=== PATIENT | male | born 1945 | race Caucasian/White ===

== ENCOUNTER 2021-08-28 12:54 | Outpatient (CLI) | payer MEDICARE, OTHER, SELFPAY ==
[2021-08-28 16:31] LABS: Prostate Specific Antigen < 0.1 ng/mL (< OR = 4.0)
== END 2021-08-28 12:55 | disposition home or self-care (01) ==
PROVIDERS: Radiology Radiation Oncology; Visit Provider Internal Medicine Hematology & Oncology
DX: C61 Malignant neoplasm of prostate (principal)
CPT/HCPCS: 36415; 84153

== ENCOUNTER 2022-02-28 09:16 | Outpatient (CLI) | payer MEDICARE, OTHER, SELFPAY ==
[2022-02-28 12:43] LABS: Prostate Specific Antigen < 0.1 ng/mL (< OR = 4.0)
== END 2022-02-28 09:17 | disposition home or self-care (01) ==
PROVIDERS: Radiology Radiation Oncology; Visit Provider Internal Medicine Hematology & Oncology
DX: C61 Malignant neoplasm of prostate (principal)
CPT/HCPCS: 36415; 84153

== ENCOUNTER 2023-03-20 15:54 | Outpatient (CLI) | payer MEDICARE, SELFPAY ==
--- NOTE | ~2023-03-20 | US_ITS ---
EXAMINATION:US venous doppler LE BI INDICATION:Lower extremity swelling TECHNIQUE: Multiple grayscale, color flow and Doppler images of the right and left lower extremity de ep venous systems were obtained and reviewed. COMPARISON:No prior studies for comparison. FINDINGS: The common femoral, superficial femoral and popliteal veins demonstrate normal respiratory variation, augmentation and compressibility. Color flow is also seen within the posterior tibial, pe roneal, greater saphenous and profunda veins. IMPRESSION: 1: No lower extremity deep venous thrombosis. Reviewed, dictated and finalized at location A.
[2023-03-20 18:08] LABS: Appearance Urine Clear (Clear); Basophils Percent Auto 0.6 % (0.2-1.2); Bilirubin Urine Negative (Negative); Blood Urine Negative (Negative); Color Urine Yellow (Yellow); Eosinophils Absolute Auto 0.2 K/mm3 (0-0.3); Eosinophils Percent Auto 3.6 % (0-4.4); Glucose Urine UA Negative (Negative); Hematocrit 40.1 % (42.0-52.0); Hemoglobin 13.2 g/dL (14.0-18.0); Immature Granulocyte Absolute 0.03 K/mm3 (0.00-0.031); Immature Granulocyte Percent A 0.6 % (0-0.5); Ketones Urine Negative (Negative); Leukocyte Esterase Ur Negative LEU/UL (Negative); Lymphocytes Percent Auto 21.7 % (18.3-44.2); Mean Corpuscular HGB Conc 32.9 g/dl (32-36); Mean Corpuscular Hemoglobin 31.1 pg (26-34); Mean Corpuscular Volume 94.6 fl (80-100); Mean Platelet Volume 12.7 fl (7.4-10.4); Monocytes Absolute Auto 0.5 K/mm3 (0.1-0.6); Monocytes Percent Auto 10.5 % (2.6-8.5); Neutrophils Absolute Auto 3.2 K/mm3 (1.3-6.7); Nitrate Urine Negative (Negative); Platelet Count Result 132 k/mm3 (150-375); Protein Urine Negative (Negative); Red Blood Count 4.24 M/mm3 (4.6-6.20); Red Cell Distribution Width 14.5 % (11.5-14.5); Specific Grav Ur 1.017 (1.001-1.035); Urobilinogen Urine 0.2 mg/dL (<2.0); White Blood Count 5.1 K/mm3 (4.5-10.0)
[2023-03-20 18:12] LABS: Add Urine Microscopic? NO
[2023-03-20 18:18] LABS: Alanine Aminotransferase 49 U/L (6-50); Albumin Level 4.3 g/dL (3.5-5.1); Alkaline Phosphatase 70 U/L (38-126); Anion Gap 8 mmol/L (8-16); Aspartate Amino Transferase 49 U/L (17-59); Bilirubin,Total 0.6 mg/dL (0.2-1.3); Blood Urea Nitrogen 16 mg/dL (9-20); Calcium 9.2 mg/dL (8.4-10.2); Carbon Dioxide 27 mmol/L (22-30); Chloride 105 mmol/L (98-107); Estimated Glomerular Filt Rate > 60; Glucose 115 mg/dL (65-110); Potassium 4.1 mmol/L (3.4-5.0); Sodium 140 mmol/L (137-145)
[2023-03-20 18:27] LABS: NT Pro B Type Natriuretic Pept 161 pg/mL (19.9-100)
== END 2023-03-20 15:55 | disposition home or self-care (01) ==
PROVIDERS: PCP Student in an Organized Health Care Education/Training Program; Visit Provider Student in an Organized Health Care Education/Training Program
DX: M79.89 Other specified soft tissue disorders (principal); I50.89 Other heart failure
CPT/HCPCS: 36415; 80053; 81003; 83880; 85025; 93970

== ENCOUNTER 2023-10-17 10:15 | Outpatient (CLI) | payer MEDICARE, SELFPAY ==
[2023-10-17 10:45] LABS: Basophils Percent Auto 0.6 % (0.2-1.2); Eosinophils Absolute Auto 0.2 K/mm3 (0-0.3); Eosinophils Percent Auto 5.7 % (0-4.4); Hematocrit 39.8 % (42.0-52.0); Hemoglobin 13.2 g/dL (14.0-18.0); Immature Granulocyte Absolute 0.01 K/mm3 (0.00-0.031); Immature Granulocyte Percent A 0.3 % (0-0.5); Immature Platelet Fraction Pct 10.3 % (0.9-11.2); Lymphocytes Absolute Auto 0.82 K/mm3 (0.9-3.2); Mean Corpuscular HGB Conc 33.2 g/dl (32-36); Mean Corpuscular Hemoglobin 31.1 pg (26-34); Mean Corpuscular Volume 93.9 fl (80-100); Mean Platelet Volume 11.6 fl (7.4-10.4); Monocytes Absolute Auto 0.4 K/mm3 (0.1-0.6); Monocytes Percent Auto 12.4 % (2.6-8.5); Neutrophils Absolute Auto 1.7 K/mm3 (1.3-6.7); Platelet Count Result 114 k/mm3 (150-375); Red Blood Count 4.24 M/mm3 (4.6-6.20); Red Cell Distribution Width 13.2 % (11.5-14.5); White Blood Count 3.2 K/mm3 (4.5-10.0)
[2023-10-17 14:45] LABS: Alanine Aminotransferase 36 U/L (6-50); Albumin Level 3.9 g/dL (3.5-5.1); Alkaline Phosphatase 70 U/L (38-126); Anion Gap 4 mmol/L (8-16); Aspartate Amino Transferase 36 U/L (17-59); Bilirubin,Total 0.7 mg/dL (0.2-1.3); Blood Urea Nitrogen 14 mg/dL (9-20); Calcium 9.3 mg/dL (8.4-10.2); Carbon Dioxide 30 mmol/L (22-30); Chloride 104 mmol/L (98-107); Estimated Glomerular Filt Rate > 60; Glucose 235 mg/dL (65-110); Potassium 4.4 mmol/L (3.4-5.0); Sodium 138 mmol/L (137-145)
[2023-10-17 15:15] LABS: Prostate Specific Antigen < 0.1 ng/mL (< OR = 4.0)
== END 2023-10-17 10:16 | disposition home or self-care (01) ==
PROVIDERS: PCP Internal Medicine; Visit Provider Internal Medicine Hematology & Oncology
DX: C61 Malignant neoplasm of prostate (principal)
CPT/HCPCS: 36415; 80053; 84153; 85025; 85055

== ENCOUNTER 2023-10-21 11:45 | Outpatient (CLI) | payer MEDICARE, SELFPAY ==
[2023-10-21 13:44] LABS: Folic Acid 5.2 ng/mL (2.76->20)
[2023-10-21 14:07] LABS: Iron 100 ug/dL (49-181)
[2023-10-21 14:18] LABS: Percent Iron Saturation 30 % (20-50)
== END 2023-10-21 11:46 | disposition home or self-care (01) ==
LOC: ANHLAB 11:48
PROVIDERS: PCP Internal Medicine; Visit Provider Internal Medicine Hematology & Oncology
DX: D64.9 Anemia, unspecified (principal)
CPT/HCPCS: 36415; 82607; 82728; 82746; 83540; 83550

== ENCOUNTER 2023-10-24 14:31 | Outpatient (CLI) | payer MEDICARE, SELFPAY ==
--- NOTE | ~2023-10-24 | CT_ITS ---
EXAMINATION: CT abdomen pelvis w con DATE: 10/24/2023 15:21 INDICATION: Prostate cancer. TECHNIQUE: Computed tomography (CT) of the abdomen and pelvis was performed with 100 mL Omnipaque 350 intravenous contrast. Automated exposure control and iterative reconstruction technique were employe d. The dose-length product was 672.10 mGy-cm. COMPARISON: None. FINDINGS: The visualized portions of the lung bases demonstrate mild atelectasis. No pleural effusion . There is left atrial enlargement of the heart. There are coronary artery calcifications. No pericar dial effusion. There is mild elevation of left hemidiaphragm. The liver, gallbladder, spleen, pancrea s, and adrenal glands are normal. 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 There is a 13 mm cyst in right kidney. There is diverticulosis of the colon without evidence of diverticulitis. The appendix is normal. There are no dilated loops of bowel. Ther e is fat stranding in anterior abdominal wall at the midline, consistent with scarring versus inflamm ation. There may be changes of ventral hernia repair. There is a left supraumbilical ventral hernia c ontaining fat. There are bilateral inguinal hernias containing fat. There are no pathologically enlar ged lymph nodes. There is no free intraperitoneal fluid. There is peripheral sclerosis in the sacrum, which may be Paget disease or radiation osteitis. There is mild chronic anterior wedging of multiple thoracic vertebral bodies. There is moderate thoracic and lumbar spondylosis. IMPRESSION: 1. No specific evidence of metastatic disease. Reviewed, dictated and finalized at location A. N JOBS TRAINER
== END 2023-10-24 14:32 | disposition home or self-care (01) ==
PROVIDERS: PCP Internal Medicine; Visit Provider Internal Medicine Hematology & Oncology
DX: C61 Malignant neoplasm of prostate (principal)
CPT/HCPCS: 74177; Q9967

== ENCOUNTER 2024-05-17 13:18 | Outpatient (CLI) | payer MEDICARE, SELFPAY ==
[2024-05-17 13:37] LABS: Hematocrit 41.3 % (42.0-52.0); Hemoglobin 13.8 g/dL (14.0-18.0); Mean Corpuscular HGB Conc 33.4 g/dl (32-36); Mean Corpuscular Hemoglobin 31.6 pg (26-34); Mean Corpuscular Volume 94.5 fl (80-100); Red Blood Count 4.37 M/mm3 (4.6-6.20); Red Cell Distribution Width 12.9 % (11.5-14.5); White Blood Count 6.3 K/mm3 (4.5-10.0)
[2024-05-17 13:38] LABS: Basophils Percent Auto 0.5 % (0.2-1.2); Eosinophils Percent Auto 0.3 % (0-4.4); Immature Granulocyte Absolute 0.06 K/mm3 (0.00-0.031); Immature Granulocyte Percent A 0.9 % (0-0.5); Lymphocytes Absolute Auto 1.04 K/mm3 (0.9-3.2); Lymphocytes Percent Auto 16.4 % (18.3-44.2); Mean Platelet Volume 12.4 fl (7.4-10.4); Monocytes Absolute Auto 0.6 K/mm3 (0.1-0.6); Monocytes Percent Auto 9.3 % (2.6-8.5); Neutrophils Absolute Auto 4.6 K/mm3 (1.3-6.7); Neutrophils Percent Auto 72.6 % (45.5-73.1); Platelet Count Result 142 k/mm3 (150-375)
[2024-05-17 14:13] LABS: Anion Gap 10 mmol/L (4-12); Blood Urea Nitrogen 24 mg/dL (9-20); Carbon Dioxide 25 mmol/L (22-30); Chloride 100 mmol/L (98-107); Potassium 4.5 mmol/L (3.4-5.0); Sodium 135 mmol/L (137-145)
[2024-05-17 14:14] LABS: Alanine Aminotransferase 35 U/L (6-50); Albumin Level 4.4 g/dL (3.5-5.1); Alkaline Phosphatase 71 U/L (38-126); Aspartate Amino Transferase 35 U/L (17-59); Bilirubin,Total 0.6 mg/dL (0.2-1.3); Calcium 9.5 mg/dL (8.4-10.2); Estimated Glomerular Filt Rate > 60; Glucose 179 mg/dL (65-110)
[2024-05-17 14:42] LABS: Prostate Specific Antigen < 0.1 ng/mL (< OR = 4.0)
== END 2024-05-17 13:19 | disposition home or self-care (01) ==
PROVIDERS: PCP Internal Medicine; Visit Provider Internal Medicine Hematology & Oncology
DX: C61 Malignant neoplasm of prostate (principal)
CPT/HCPCS: 36415; 80053; 84153; 85025

== ENCOUNTER 2025-01-14 11:12 | Outpatient (CLI) | payer MEDICARE, SELFPAY ==
--- OUTSIDE RECORDS SUMMARY | 2025-01-14 11:15 | XMS_ITS | Continuity of Care Document ---
Author Organization [facility] Address [address] [place] [address] Phone Care Team Providers Care Manager Terminal Name Role Phone Nirmal Ortega MD Unavailable Unavailable Allergies, Adverse Reactions, Alerts Substance Reaction Status Criticality No Known Allergies Active No Inform ation Medications Medication Instructions Dosage Effective Dates (start - stop) Status Comments MELOXICAM 15 MG TABLET TAKE 1 TABLET BY MOUTH EVERY DAY WITH FOOD - Active METOPROLOL TARTRATE (unknown strength) Not Available - Active METFORMIN HCL (unknown strength) Not Available - Active ASPIRIN (unknown strength) Not Available - Active Mobic 15 mg tablet take 1 tablet (15MG) 1 po qd w/ food - No Longer Active Procedures Procedure Date Triamcinolone acet inj NOS OFFICE/OUTPATIENT VISIT EST RADEX SPI LUMBOSAC 2/3 VIEWS X-RAY EXAM HIP UNI W PELVIS 2-3 VIEWS OFFICE/OUTPATIENT VISIT NEW OFFICE/OUTPATIENT VISIT EST POSTOP FOLLOW-UP VISIT OFFICE/OUTPATIENT VISIT EST OFFICE/OUTPATIENT VISIT EST OFFICE/OUTPATIENT VISIT EST OFFICE CONSULTATION MU Reporting OFFICE/OUTPATIENT VISIT NEW Advance Directives Directive Yes / No Effective Date File Name No Information Encounters Encounter Description Practice Location Reason(s) For Visit Diagnoses Date Provider Providers Copied on Encounter [facility], [address], [place], [address], [place] tel:[phone] [facility] No Information 0 Jordan Kinney. [address], [place], [place], [id number] . tel: [phone] OFFICE/OUTPAT IENT VISIT EST [facility], [address] [address], [place], [address], [place] tel:[phone] [facility] LBP and right buttock/hi p pain (chief complaint) Right lumbar radiculopathyDJD (degenerative joint disease), lumbosacralSacro iliac dysfunction 0 Jordan Kinney. [address] [facility], [place], [place], [id number] . tel: [phone] [facility], [address] [address], [place], [address], [place] tel:[phone] [facility] Right lumbar radiculopathy 0 Jordan Kinney. [address] [facility], [place], [place], [id number] . tel: [phone] OFFICE/OUTPAT IENT VISIT NEW [facility], [address] [address], [place], [address], [place] tel:[phone] [facility] LBP and right hip/buttoc k pain (chief complaint) Low back painPain in right hipRight lumbar radiculopathyDJD (degenerative joint disease), lumbosacralBody mass index (BMI) 28.0-28.9, adult 0 Jordan Kinney. [address] [facility], [place], [place], [id number] . tel: [phone] OFFICE/OUTPAT IENT VISIT EST [facility], [address], [address], [place] tel:[phone] [facility] Body mass index (BMI) 26.0-26.9, adultHerpes zoster without complication 8 Rick Parrish. [address] [facility] [address], [place], [place], [id number] . tel: [phone] [facility], [address] [place], [address], [place] tel:[phone] [facility] Trigger finger of right thumb 7 Noah Barron. [address], [place], [place], [id number] . tel: [phone] OFFICE/OUTPAT IENT VISIT EST [facility], [address] [facility] [address], [place], [address], [place] tel:[phone] [facility] Trigger finger of right thumb 7 Noah Barron. [address], [place], [place], [address] . tel: [phone] OFFICE/OUTPAT IENT VISIT EST [facility], [address] [address], [place], [address], [place] tel:[phone] [facility] Skin sensation disturbance 5 Adan Gamez. [address], [place], [place], [id number] . tel: [phone] OFFICE/OUTPAT IENT VISIT EST [facility], [address] [address], [place], [address], [place] tel:[phone] [facility] Neck pain (chief complaint) Cervical radiculopathyCer vical Disc DJD 5 Jordan Kinney. [address] , [place], [place], [id number] . tel: [phone] OFFICE CONSULTATION [facility], [address] [facility], [place], [address], [place] tel:[phone] [facility] Neck pain (chief complaint) Cervical Disc DJDCervical radiculopathy 5 Jordan Kinney. [address] , [place], [place], [id number] . tel: [phone] Referring Provider: Jayla Melgar, [address], [place], [address]. tel:[phone] [facility], [address] [facility], [address], tel:[phone] [facility] Right hip pain (chief complaint) Pain in joint involving pelvic region and thighMyoneural disorders, unspecified 2 Ortega Nirmal. [address] , [place], [place], [address] . tel:[phone] OFFICE/OUTPAT IENT VISIT NEW [facility], [address], [address], tel:[phone] [facility] Pain in joint involving pelvic region and thighMyoneural disorders, unspecifiedHyper tension, Unspecified 2 Jordan Kinney. [address] , [place], [place], [address] . tel:[phone] Referring Provider: Jayla Melgar, [address], [place], [place], [facility]. tel:[phone] Family History Family Member Type Diagnosis Age At Onset Father Problem heart attack Problem (finding) Family history of congenital heart disease Payers Payer name Insurance type Covered alliance party ID Authortabithaa tiethan(s) Medicare E2 OT [id number] [facility] [place] [id number] Social History Type Description Quantity Date Captured Comments Sex Male Smoking Status No Information Chief Complaint And Reason For Visit No Information Reason For Referral Reason For Referral No Information Plan Of Treatment Date Type Action Status Goal Dietary management education , guidance, and counseling completed Referral Ordered: INJ FORAMEN EPIDURAL L/S spine, lumbar Appointment date/timeframe: 03/02/2020 ordered Referral Ordered: X-RAY EXAM HIP UNI W PELVIS 2-3 VIEWS RT hip ordered Referral Ordered: RADEX SPI LUMBOSAC 2/3 VIEWS spine, lumbar ordered Referral Ordered: MUSC TEST DONE W/N TEST COMP (EMG/NCS) Bilateral upper ordered Referral Ordered: RADEX FNGR MINIMUM 2 VIEWS Bilateral thumb ordered Referral Ordered: RADEX SPI CRV 2/3 VIEWS ordered Referral Ordered: RADEX SPI LUMBOSAC 2/3 VIEWS ordered Referral Ordered: RADEX HIP UNI COMPL MINIMUM 2 VIEWS RT hip ordered History Of Present Illness Encounter Date Complaint History Of Prese nt Illness LBP and right buttock/hip pain LBP and right hip/buttock pain Neck pain Neck pain Functional Status Date Functional Assessmen t No Information Instructions Date Instruction Additional Infor mation Apply ice 20 min per hour Relate d to DJD (degenerative joint disease), lumbosacral Home exercise program. Related t o DJD (degenerative joint disease), lumbosacral Dietary management e ducation, guidance, and counseling Related to Body mass index (BMI) 28.0-28.9, adult Giving encouragement to exercise Related to Body mass index (BMI) 26.0-26.9, adult Take medication as prescribed. R elated to Herpes zoster without complication Activity as tolerated. Related t o Trigger finger of right thumb Activity as tolerated. Related t o Trigger finger of right thumb Home exercise program. Related t o Skin sensation disturbance Discussed treatment options Rela josse to Skin sensation disturbance Take medication as directed. Rel ated to Cervical radiculopathy Continue medication as prescribe d Assessments Type Assessment Date No Information Patient Care Teams Name Effective Dates (start - stop) Status Members No Information
--- OUTSIDE RECORDS SUMMARY | 2025-01-14 11:15 | XMS_ITS | Encounter Summary ---
Author Organization [facility] Address 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 Gender Identity Not on file Sexual Orientation Not on file documented as of this encounter Plan of Treatment Upcoming Encounters Date Type Department Care Team (Late st Contact Info) Description 01/19/2025 10:15 AM CDT Office Visit [facility] Oncology and Hematology - [place] [address] [facility] [address] [place] [address] Howard Tapia MD [address] [address] documented as of this encounter Visit Diagnoses Diagnosis Cervical spondylosis without myelopathy- Primary documented in this encounter Care Teams Schedule Supervisor Relationship Specialty Start Date End Date Chente Terrazas MD [address] [facility] [address] [place] [address] PCP - General Internal Medicine 05/21/24 documented as of this encounter
--- OUTSIDE RECORDS SUMMARY | 2025-01-14 11:15 | XMS_ITS | Encounter Summary ---
Author Organization [facility] Address [address] [place] [address] Care Team Providers Care Surgery Scheduler Name Role Phone Jayla Melgar MD Primary Care Provider [phone] Encounter Details Date Type Department Care Team (Late st Contact Info) Description 09/15/2018 Lab Requisition [facility] [address] [facility], [place] [address] [place] [address] [facility] [address] [place] [address] Social History Tobacco Use Types Packs/Day Years Used Date Smoking Tobacco: Never Assessed Sex and Gender Information Value Date Recorded Sex Assigned at Not on file Legal Sex Male 6:33 AM LOAD DISPATCHER LOCAL Gender Identity Not on file Sexual Orientation Not on file documented as of this encounter Plan of Treatment Not on file documented as of this encounter Procedures Procedure Name Priority Date/Time Associated Diagnosis Comments DERMATOPATHOLOGY Routine 09/14/2018 12:0 0 AM LOAD DISPATCHER LOCAL documented in this encounter Results * DERMATOPATHOLOGY (09/14/2018 12:00 AM LOAD DISPATCHER LOCAL) Case Report Dermatopathology Report Case: [id number] Authorizing Provider: Yamilet Ardon MD Collected: 09/14/2018 12:00 AM Pathologist: Chloé Melgar MD Received: 09/15/2018 01:27 PM Specimen: Skin, left sup helix 9 11:47 AM LOAD DISPATCHER LOCAL DERMATOPATHOLOGY LABORATORY Final Diagnosis Specimen A. SKIN, left sup helix: ACTINIC KERATOSIS (L57.0) DERMAL SCAR (L90.5) 9 11:47 AM LOAD DISPATCHER LOCAL DERMATOPATHOLOGY LABORATORY at [address] [facility] Clinical History HAK R/O SCC. 11:47 AM [facility] DERMATOPATHOLOGY LABORATORY Gross Description Specimen A: Received is one formalin filled container labeled with the patient's name and designated left sup helix. The specimen consists of a shave biopsy measuring [id number]. Jar 0. 11:47 AM [facility] DERMATOPATHOLOGY LABORATORY Microscopic Description Specimen A. SKIN, left sup helix: There is focal parakeratosis. The lower half of the epidermis shows disorderly maturation of keratinocytes with nuclear pleomorphism. There are fibroblasts and collagen bundles oriented parallel to the skin surface with elongated blood vessels, some of which are oriented perpendicular to the skin surface. 11:47 AM [facility] DERMATOPATHOLOGY LABORATORY Disclaimer An external and internal positive and negative controls are appropriate for the histochemical, immunohistochemical and immunofluorescence stain(s) in this case (if any), except where stated explicitly. The performance characteristics of the stain(s) cited in this report were developed and its performance characteristic determined by the Dermatopathology Laboratory at [facility], directed by Dr. Miguel Hinson. These tests need not be, and therefore are not, approved by the [place] Food and Drug Administration. The tests are used for clinical purposes. Billing Codes Specimen Charges Stain Charges 59581 1 11:47 AM [facility] DERMATOPATHOLOGY LABORATORY Embedded Images 11:47 AM [facility] DERMATOPATHOLOGY LABORATORY Pathology/Cytolog y TISSUE SPECIMEN FROM SKIN / Unknown 09/14/2018 09/15/2018 1:27 PM [facility] us Yamilet Ardon MD LAB - PATHOLOGY/CYTOLOGY [facility] Final Result DERMATOPATHOLOGY LABORATORY [facility] - Department of Dermatology [address] [facility], 5th [place] [address], [facility] [phone] documented in this encounter Visit Diagnoses Not on filedocumented in this encounter Care Teams Surgery Scheduler Relationship Specialty [place] [address] [facility] [address] [place] [address] PCP - General 08/05/18 documented as of this encounter
--- OUTSIDE RECORDS SUMMARY | 2025-01-14 11:15 | XMS_ITS | Clinical Summary ---
Author Organization [employer] [facility] [address] [facility] Address [address] [place] [address] Care Team Providers Care Digital Production Manager Name Role Phone Chente Terrazas MD Primary Care Provider [phone] Allergies Active Allergy Reactions Criticality Noted Date Comments Rosuvastatin Rash Low 09/04/2017 Medications aspirin (PHU CHEWABLE) 81 mg Tablet, Chewable 1 tab Act price metFORMIN (GLUCOPHAGE) 500 mg tablet 1 tab(s) 05/13/2016 Active metoprolol succinate (TOPROL XL) 25 mg Extended Release 24 hour tablet Take 1 Tablet by mouth. 09/23/2017 Active Calcium-Cholecal ciferol, D3, (OSCAL) 250 mg-3.125 mcg (125 unit) per tablet Take by mouth daily. Active cyanocobalamin 1,000 mcg Tablet Take 1,000 mcg by mouth daily. 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 CAD (coronary atherosclerotic disease) Pure hypercholesterolemia Diabetes mellitus due to und erlying condition without complications Encounters Date Type Department Care Team Description 12/21/2024 External Device Data ST[facility] ABSTRACTION Provider, Abstract 11/23/2024 External Device Data [facility] ABSTRACTION Provider, Abstract 11/23/2024 External Device Data [facility] ABSTRACTION Provider, Abstract 11/10/2024 External Device Data [facility] ABSTRACTION Provider, Abstract 10/30/2024 External Device Data [facility] ABSTRACTION Provider, Abstract 10/29/2024 External Device Data [facility] ABSTRACTION Provider, Abstract from Last 3 Months Family History Medical History Relation Name Comments Colon Cancer Brother 1 Heart Attack Father Relation Name Status Comments Brother 1 Brother 2 Father Sister Alive Son Alive Social History Tobacco Use Types Packs/Day Years Used Date Smoking Tobacco: Former Cigarettes Q uit: 1986 Smokeless Tobacco: Never Tobacco Cessation:Counseling Given: Not Answered Alcohol Use Standard Drinks/Week Comments Yes 0 (1 standard drink = 0.6 oz pur e alcohol) social Sex and Gender Information Value Date Recorded Sex Assigned at Not on file 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 Gender Identity Not on file Sexual Orientation Not on file Last Filed Vital Signs Vital Sign Reading Time Taken Comments Blood Pressure 127/59 05/21/2024 10:03 AM CDT Pulse 63 05/21/2024 10:03 AM CDT Temperature 36.4 C (97.5 F) 05/21/2024 10:03 AM CDT Respiratory Rate 15 05/21/2024 10:03 AM CDT Oxygen Saturation 95% 05/21/2024 10:03 AM CDT Inhaled Oxygen Concentration - - Weight 88.1 kg (194 lb 3.2 oz) 05/21/2024 10:03 AM CDT Height 182.9 cm (6') 03/11/2023 12:03 PM CDT Body Mass Index 26.34 03/11/2023 12:03 PM CDT Plan of Treatment Upcoming Encounters Date Type Department Care Team (Late st Contact Info) Description 01/19/2025 10:15 AM CDT Office Visit [facility] Oncology and Hematology [facility] [address] [place] [address] [facility] [address] [place] [address] Howard Tapia MD [address] [facility] [address] [place] [address] Health Maintenance Due Date Last Done Comments DIABETES ANNUAL FOOT EXAM 1965 DIABETES MICROALBUMIN ANNUAL SCREEN 1965 LDL CHOLESTEROL ANNUAL 1965 RSV VACCINE (60+ or ) (1 - 1-dose 75+ series) 2022 DIABETES ANNUAL RETINAL EXAM 11/19/2023, 11/18/2022, 05/26/2018, Additional history exists DIABETES HBA1C Q 6 MONTHS 02/10/20242022, 01/31/2023, 10/30/2022, Additional history exists INFLUENZA VACCINE (#1) 2024 2, 05/13/2021, 05/11/2021, Additional history exists COVID-19 Vaccine (2023-2 5 season) 2024 11/29/2021, 06/25/2021, 06/01/2021 DTAP/TDAP/TD VACCINES (3 - T d or Tdap) 05/28/2027 05/28/2017, 02/26/2005 PNEUMOCOCCAL VACCINE 50+ YEARS Completed 02/18/2017 , 09/29/2012 ZOSTER VACCINE Completed 09/25/2021, 12/0 03/2021, 05/31/2021, Additional history exists COLORECTAL SCREENING Discontinued 06/19/2022, 06/19/20 22 Colorectal Cancer Screening Discontinued FIT-DNA Q 3 years Discontinued FIT/FOBT Q 1 year Discontinued Flex Sig/CT Colonography Q 5 years Discontinued Insurance MEDICARE PART A AND B [employer] MCR SUPP [place] [id number] MEDICARE PART A AND B Care Teams Digital Production Manager Relationship Specialty Start Date End Date Chente Terrazas MD [address] [place] [address] PCP - General Internal Medicine 05/21/24
--- OUTSIDE RECORDS SUMMARY | 2025-01-14 11:15 | XMS_ITS | Encounter Summary ---
Author Organization [facility] Address 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 Gender Identity Not on file Sexual Orientation Not on file documented as of this encounter Plan of Treatment Upcoming Encounters Date Type Department Care Team (Late Contact Info) Description 01/19/2025 10:15 AM CDT Office Visit [facility] Oncology and Hematology - [place] [address] [facility] [address] [place] [address] Howard Tapai MD [address] [facility] [address] [place] [address] documented as of this encounter Visit Diagnoses Not on filedocumented in this encounter Care Teams Transit Driver Relationship Specialty Start Date End Date Chente Terrazas MD [address] [facility] [address] [place] [address] PCP - General Internal Medicine 05/21/24 documented as of this encounter
--- OUTSIDE RECORDS SUMMARY | 2025-01-14 11:15 | XMS_ITS | Clinical Summary ---
Author Organization [facility] Address [address] [place] [address] Care Team Providers Care Tie Cutter Name Role Phone Jayla Melgar MD Primary Care Provider [phone] [facility],non-owned Affiliates and Associated Physician Practices is amultiple site organization consisting of ambulatory clinics and hospital sitesin [place], [place], [place] and [place]. This disclosure is being madepursuant to the Care Everywhere program and may not contain all information available regarding this patient. Last updated 18.[facility] [employer] Social History Tobacco Use Types Packs/Day Years Used Date Smoking Tobacco: Never Assessed Sex and Gender Information Value Date Recorded Sex Assigned at Not on file Legal Sex Male 6:33 AM [employer] Gender Identity Not on file Sexual Orientation Not on file Last Filed Vital Signs Vital Sign Reading Time Taken Comments Blood Pressure 137/70 09/15/2017 10:00 AM [employer] Pulse 60 09/15/2017 10:00 AM [employer] Temperature - - Respiratory Rate - - Oxygen Saturation 96% 09/15/2017 10:00 AM [employer] Inhaled Oxygen Concentration - - Weight 90.7 kg (200 lb) 09/15/2017 8:18 AM [employer] Height 182.9 cm (6') 09/15/2017 8:18 AM [employer] Body Mass Index 27.12 09/15/2017 8:18 AM [employer] Plan of Treatment Health Maintenance Due Date Last Done Comments MEDICARE AWV 12 MONTHS 1945 DTAP/TDAP/TD VACCINES (1 - Tdap) 1966 PNEUMOCOCCAL VACCINE 50+ (1 of 1 - PCV) 1997 ZOSTER VACCINE (1 of 2) 1997 Respiratory Syncytial Virus (RSV) Vaccine Pt: or over 60 yrs (1 - 1-dose 75+ series) 2022 COVID-19 VACCINE (4 - 2024-25 season) 2024 11/29/2021, 06/25/2021, 06/01/2021 DEPRESSION SCREENING 08/25/2024 HEPATITIS C SCREENING Completed 01/31/2023 INFLUENZA VACCINE Completed 06/03/2024, , 05/25/2019, Additional history exists HEPATITIS B VACCINE Aged Out No longe r eligible based on patient's age to complete this topic HIB VACCINE Aged Out No longer eligi ble based on patient's age to complete this topic HPV VACCINE Aged Out No longer eligi ble based on patient's age to complete this topic MENINGOCOCCAL (Group B) VACCINE SHARED DECISION-MAKING Aged Out No longer eligible based on patient's age to complete this topic MENINGOCOCCAL GROUPS A/C/Y/W VACCINE Aged Out No longer eligible based on patient's age to complete this topic Insurance MEDICARE [facility] [place] Care Teams Tie Cutter Relationship Specialty [place] [id number] [address] [facility] [address] [place] [id number] PCP - General 08/05/18
--- OUTSIDE RECORDS SUMMARY | 2025-01-14 11:15 | XMS_ITS | Continuity of Care Document ---
Author Organization [employer] Address [address] [place] [address] Phone Care Team Providers Care Cook Taco Name Role Phone Jayla Melgar MD Unavailable Unavailable Allergies, Adverse Reactions, Alerts Substance Reaction Status Criticality simvastatin Joint Pain Active No Information ROSUVASTATIN CALCIUM Joint Pain Active No Info rmation lovastatin Joint Pain Active No Information ATORVASTATIN CALCIUM Myalgias Active No Info rmation Medications Medication Instructions Dosage Effective Dates (start - stop) Status Comments METFORMIN HCL ER 500 MG TABLET TAKE 1 TABLET BY MOUTH EVERY DAY IN THE EVENING 500 MG - Active doxycycline hyclate 100 mg capsule take 1 capsule by oral route 2 times every day 100 MG - Active METOPROLOL SUCC ER 25 MG TAB TAKE 1 TABLET BY MOUTH EVERY DAY - Active Vitamin D3 25 mcg (1,000 unit) capsule take 1 capsule by oral route every morning for 1 morning 1 capsule - Active Procedures Procedure Date SARS-CoV-2/Flu/RSV (all targets) 2021 COVID, Flu A, Flu B Kept Appointment No Charge Encounter May Admin influenza virus vac FLU VACC PRSV FREE INC ANTIG OFFICE [id number]-EOU-[id number] BODY MASS INDEX DOCD SYST BP >= 140 MM HG6 IT DIAST BP >= 90 MM HG OFFICE BVJTD-CEL-KUZOOJYS BODY MASS INDEX DOCD SYST BP GE 130 - 139MM HG DIAST BP < 80 MM HG Pt inelig neg scrn depres FALL RISK ASSESSMENT DOC'D PRES/ABSN URINE INCON ASSESS CBC, INC PLATELETS AND DIFFERENTIAL COMPREHEN [facility]ABOLIC PANEL [facility] 2 HEMOGLOBIN A1C HGA1C, GLYCO PROTHROMBIN TIME W/INR (PROTIME,PT) URINALYSIS, DIPSTICK (UA) - Office Lab F ROUTINE VENIPUNCTURE URINALYSIS W MICROSCOPIC (UA) 2 OFFICE HHFVR-AJW-LDNKIVOK BODY MASS INDEX DOCD SYST BP LT 130 MM HG DIAST BP < 80 MM HG Pt inelig neg scrn depres FALL RISK ASSESSMENT DOC'D PRES/ABSN URINE INCON ASSESS COMPREHEN METABOLIC PANEL [facility] 1 HEMOGLOBIN A1C HGA1C, GLYCO ROUTINE VENIPUNCTURE PPPS, subseq visit BODY MASS INDEX DOCD SYST BP GE 130 - 139MM HG DIAST BP < 80 MM HG MICROALBUMIN, QN (URINE) CREATININE, (U-R) OFFICE BVDPA-FHY-NNSVSIVY BODY MASS INDEX DOCD SYST BP LT 130 MM HG DIAST BP < 80 MM HG OFFICE QPKNL-EWZ-PLSTAPUR BODY MASS INDEX DOCD SYST BP LT 130 MM HG DIAST BP < 80 MM HG OFFICE LKXCF-CUI-TBVMNZGL BODY MASS INDEX DOCD SYST BP LT 130 MM HG DIAST BP < 80 MM HG Pt inelig neg scrn depres FALL RISK ASSESSMENT DOC'D PRES/ABSN URINE INCON ASSESS OFFICE BVUOB-NKG-VKGXDHWS BODY MASS INDEX DOCD SYST BP LT 130 MM HG DIAST BP < 80 MM HG Admin influenza virus vac FLU VACC PRSV FREE INC ANTIG OFFICE RDDRC-XIA-JVLFENAP BODY MASS INDEX DOCD SYST BP LT 130 MM HG DIAST BP < 80 MM HG OFFICE XFGWL-LUM-WDHM-MED FALL PLAN OF CARE DOC'D URINE INCON PLAN DOC'D PRES/ABSN URINE INCON ASSESS Pt inelig neg scrn depres MICROALBUMIN, QN (URINE) CREATININE, (U-R) URINALYSIS W MICROSCOPIC (UA) 0 URINALYSIS, DIPSTICK (UA) - Office Lab M OFFICE ZABEA-EUP-HXKGMXQD BODY MASS INDEX DOCD SYST BP LT 130 MM HG DIAST BP < 80 MM HG X-RAY EXAM OF LUMBAR SPINE, A/P & LAT Se OFFICE HJRQO-OXR-VGIYMFKY BODY MASS INDEX DOCD SYST BP LT 130 MM HG DIAST BP < 80 MM HG COMPREHEN METABOLIC PANEL CMP 9 HEMOGLOBIN A1C HGA1C, GLYCO ROUTINE VENIPUNCTURE FALL PLAN OF CARE DOC'D URINE INCON PLAN DOC'D PRES/ABSN URINE INCON ASSESS Pt inelig neg scrn depres OFFICE KZZKY-KPN-WHLBUCIF BODY MASS INDEX DOCD SYST BP LT 130 MM HG DIAST BP < 80 MM HG Advance Directives Directive Yes / No Effective Date File Name No Information Encounters Encounter Description Practice Location Reason(s) For Visit Diagnoses Date Provider Providers Copied on Encounter [facility], [address], [place], [place], [id number] , tel: [phone] [facility] No Information 4 Talia Jayla. [address] [place] [address], [id number] , . tel: [phone] [facility], [address], [place], [place], [id number] , tel: [phone] [facility] No Information 3 Talia Jayla. [address] [place] [address], [id number] , . tel: [phone] [facility], [address], [place], [place], [address] , tel: [phone] [facility] No Information 2 Talia Jayla. [address] [place] [address], [id number] , . tel: [phone] [facility], [address], [place], [place], [id number] , [place] tel: [phone] [facility] No Information 2 Talia Jayla. [address] [place] [address], [id number] , . tel: [phone] Referring Provider: Jayla Melgar, [address] [place] [address], [address] [place] [address] . tel:[phone] [facility], [address], [place], [place], [address] , tel: [phone] [facility] Acute cough 2 Talia Oneillera. [address] [place] [address], [id number] , . tel: [phone] Referring Provider: Jayla Melgar, [address] [place] [address], [address] [place] [address] . tel:[phone] [facility], [address], [place], [place], [address] , tel: [phone] [facility] Abnormal TSH 2 Talia Dickerson. [address] [place] [address], [id number] , . tel: [phone] OFFICE CJAWK-ASK-GN [facility], [address], [place], [place], [id number] , tel: [phone] [facility] hpi (chief complaint) Type 2 diabetes mellitus with other specified complication, without long-term current use of insulinLung noduleEssential hypertension, benignPrimary osteoarthritis, unspecified siteHepatic steatosisParesthes ia of both feetMuscle crampsAtherosclero sis of ely shoshone coronary artery of ely shoshone heart without angina pectorisProstate cancerBody mass index [BMI] 27.0-27.9, adult 2 Talia Dickerson. [address] [place] [address], [address] [place] [address] , . tel: [phone] Referring Provider: Jayla Melgar, [address] [place] [address], [address] [place] [address] . tel:[phone] [facility], [address], [place], [place], [address] , tel: [phone] [facility] No Information 2 Talia Dickerson. [address] [place] [address], [id number] , . tel: [phone] OFFICE YUQJA-OIW-YL [facility], [address], [place], [place], [address] , tel: [phone] [facility] hpi (chief complaint) Body mass index [BMI] 25.0-25.9, adultType 2 diabetes mellitus with other specified complication, without long-term current use of insulinProstate cancerAtherosclero sis of ely shoshone coronary artery of ely shoshone heart without angina pectorisEssential hypertension, benignHepatic steatosisIrritable bowel syndrome with diarrheaPrimary osteoarthritis, unspecified siteLung noduleAtherosclero sis of aortaHorseshoe kidney 2 Talia Dickerson. [address] [place] [address], [id number] , . tel: [phone] Referring Provider: Jayla Melgar, [address] [place] [address], [address] . tel:[phone] OFFICE IIQEJ-IWM-ID [facility], [address], [place], [place], [address] , tel: [phone] [facility] Medical Management (chief complaint) Body mass index [BMI] 26.0-26.9, adultPre-operative clearanceType 2 diabetes mellitus with other specified complication, without long-term current use of insulinProstate cancerHyperlipidem ia, unspecified hyperlipidemia typeAtherosclerosi s of ely shoshone coronary artery of ely shoshone heart without angina pectorisEssential hypertension, benignIrritable bowel syndrome with diarrheaHepatic steatosisPrimary osteoarthritis, unspecified siteDegenerative cervical spinal stenosisHistory of colon polypsLung noduleThrombocytop eniaPurpura 2 Talia Dicekrson. [address] [place] [address], [id number] , . tel: [phone] Referring Provider: Jayla Melgar, [address] [place] [address], [address] . tel:[phone] [facility], [address], [place], [place], [address] , tel: [phone] [facility] No Information 1 Talia Dickerson. [address] [place] [address], [id number] , . tel: [phone] [facility], [address], [place], [place], [address] , tel: [phone] [facility] Medicare preventive (chief complaint)M edical management (chief complaint) Body mass index [BMI] 27.0-27.9, adultMedicare annual wellness visit, subsequentNodule of right lungType 2 diabetes mellitus with other specified complication, without long-term current use of insulinProstate cancerHyperlipidem ia, unspecified hyperlipidemia typeEssential hypertension, benignAtherosclero sis of ely shoshone coronary artery of ely shoshone heart without angina pectorisVentral hernia without obstruction or gangreneHepatic steatosisIrritable bowel syndrome with diarrheaPrimary osteoarthritis, unspecified site 1 Talia Dickerson. [address] [place] [address], [id number] , . tel: [phone] Referring Provider: Jayla Melgar, [address] [place] [address], [address] . tel:[phone] [facility], [address], [place], [place], [address] , tel: [phone] [facility] No Information 1 Talia Dickerson. [address] [place] [address], [address], [id number] , . tel: [phone] OFFICE HVUSP-NDT-ZD TAILED [facility], [address], [place], [place], [address] , tel: [phone] [facility] Medical Management (chief complaint) Body mass index (BMI) 26.0-26.9, adultType 2 diabetes mellitus with other specified complication, without long-term current use of insulinEssential hypertension, benignVentral hernia without obstruction or gangreneProstate cancerAtherosclero sis of ely shoshone coronary artery of ely shoshone heart without angina pectorisLung noduleLeg crampsParesthesia of both feetHyperlipidemia , unspecified hyperlipidemia typeIrritable bowel syndrome, unspecified typeHepatic steatosisHistory of colon polyps 1 Talia Dickerson. [address] [place] [address], [address], [id number] , . tel: [phone] Referring Provider: Jayla Melgar, [address] [place] [address], [address] . tel:[phone] OFFICE BQTHS-ITN-MW TAILED [facility], [address], [place], [place], [address] , tel: [phone] [facility] Medical Management (chief complaint) Body mass index (BMI) 27.0-27.9, adultType 2 diabetes mellitus with other specified complication, without long-term current use of insulinProstate cancerVentral hernia without obstruction or gangreneDiarrhea, unspecified typeEssential hypertension, benign Mati- Talia Dickerson. [address] [place] [address], [id number] , . tel: [phone] Referring Provider: Jayla Melgar, [address] [place] [address], [address] . tel:[phone] [facility]ICE [facility], [address] [place] [address], [id number] , tel: [phone] [facility] Medical Management (chief complaint) Body mass index (BMI) 28.0-28.9, adultType 2 diabetes mellitus with other specified complication, without long-term current use of insulinHyperlipide yi, unspecified hyperlipidemia typeThrombocytopen iaProstate cancerEssential hypertension, benignAtherosclero sis of ely shoshone coronary artery of ely shoshone heart without angina pectorisHepatic steatosisIrritable bowel syndrome, unspecified typeChronic low back pain, unspecified back pain laterality, unspecified whether sciatica presentLung noduleHistory of colon polypsNeck painOther chronic painSnoring Talia Dickerson. [address] [place] [address], [id number] , . [phone] Referring Provider: Jayla Melgar, [address] [place] [address], [address] . tel:[phone] [facility]ICE [facility], [address], [place], [place], [address] , tel:[phone] [facility] Medical Management (chief complaint) Body mass index (BMI) 28.0-28.9, adultType 2 diabetes mellitus with other specified complication, without long-term current use of insulinHyperlipide yi, unspecified hyperlipidemia typeProstate cancerEssential hypertension, benignAtherosclero sis of ely shoshone coronary artery of ely shoshone heart without angina pectorisAtheroscle rosis of aortaHepatic steatosisChronic low back pain, unspecified back pain laterality, unspecified whether sciatica presentHorseshoe kidneyLung noduleHx of squamous cell carcinoma of skinHistory of colon polypsIrritable bowel syndrome, unspecified typeThrombocytopen ia 1 Talia Dickerson. [address] [place] [address], [address], [id number] , . tel: [phone] Referring Provider: Jayla Melgar, [address] [place] [address], [address] . tel:[phone] OFFICE [facility], [address], [place], [place], [address] , tel: [phone] [facility] Medical Management (chief complaint) Body mass index (BMI) 28.0-28.9, adultType 2 diabetes mellitus with other specified complication, without long-term current use of insulinEssential hypertension, benignHyperlipidem ia, unspecified hyperlipidemia typeProstate cancerAtherosclero sis of ely shoshone coronary artery of ely shoshone heart without angina pectorisChronic low back pain, unspecified back pain laterality, unspecified whether sciatica presentOther chronic painHistory of colon polypsHx of squamous cell carcinoma of skinHepatic steatosisAtheroscl erosis of aortaLung noduleHorseshoe kidney 0 Talia Dickerson. [address] [place] [address], [id number] , [place]. tel: [phone] Referring Provider: Jayla Melgar, [address] [place] [address], [address] . tel:[phone] [facility], [address], [place], [place], [address] , tel: [phone] [facility] Type 2 diabetes mellitus with other specified complication, without long-term current use of insulin 0 Talia Dickerson. [address] [place] [address], [address], [id number] , [place]. tel: [phone] OFFICE JHIDK-CJY-BL MP-MED [facility], [address], [place], [place], [address] , [place] tel: [phone] [facility] Elevated PSA (chief complaint) Elevated PSA 0 Bailey Dale. [address] [address], [facility] [address], [place], [address], [place]. tel: [phone] Referring Provider: Jayla Melgar, [address] [place] [address], [address] . tel:[phone] OFFICE [facility], [address], [place], [place], [address] , [place] tel: [phone] [facility] Medical Management (chief complaint) Body mass index (BMI) 29.0-29.9, adultType 2 diabetes mellitus with other specified complication, without long-term current use of insulinAtheroscler osis of ely shoshone coronary artery of ely shoshone heart without angina pectorisProstate cancer screeningUrinary frequencyNonintrac table headache, unspecified chronicity pattern, unspecified headache typeHyperlipidemia , unspecified hyperlipidemia typeDiverticulosis of intestine without bleeding, unspecified intestinal tract locationChronic low back pain, unspecified back pain laterality, unspecified whether sciatica presentOther chronic painEssential hypertension, benignIrritable bowel syndrome, unspecified typeErectile dysfunction, unspecified erectile dysfunction typeHistory of colon polypsHx of squamous cell carcinoma of skinThrombocytopen ia 0 Talia Dickerson. [address] [facility], [address], [id number] , [place]. tel: [phone] Referring Provider: Jayla Melgar [address] [place] [address], [address] . tel:[phone] [facility], [address], [place], [place], [address] , tel: [phone] [facility] No Information 9 Talia Dickerson. [address] [facility], [id number] , . tel: [phone] [facility], [address], [place], [place], [address] , tel: [phone] [facility] Low back pain Talia Dickerson. [address] [place] [address], [id number] , . tel: [phone] Referring Provider: Jayla Melgar, [address] [place] [address], [address] . tel:[phone] OFFICE NIVTW-RBW-ZQ [facility], [address] [place] [address], [id number] , tel: [phone] [facility] Medical Management (chief complaint) Body mass index (BMI) 28.0-28.9, adultGynecomastia, maleErectile dysfunction, unspecified erectile dysfunction typeChronic low back pain, unspecified back pain laterality, unspecified whether sciatica presentOther chronic painType 2 diabetes mellitus with other specified complication, without long-term current use of insulinHyperlipide yi, unspecified hyperlipidemia typeEssential hypertension, benignIrritable bowel syndrome, unspecified typeAtherosclerosi s of ely shoshone coronary artery of ely shoshone heart without angina pectorisHx of squamous cell carcinoma of skinHistory of colon polypsDiverticulos is of intestine without bleeding, unspecified intestinal tract location Talia Dickerson. [address] [place] [address], [id number] , . tel: [phone] Referring Provider: Jayla Melgar, [address] [place] [address], [address] . tel:[phone] [facility], [address] [place] [address], [id number] , tel: [phone] [facility] Type 2 diabetes mellitus with other specified complication, without long-term current use of insulin Talia Dickerson. [address] [place] [address], [id number] , . tel: [phone] Referring Provider: Jayla Melgar, [address] [place] [address], [address] . tel:[phone] OFFICE TDVCF-DDN-HT [facility], [address], [place], [place], [address] , tel: [phone] [facility] Medical Management (chief complaint) Type 2 diabetes mellitus with other specified complication, without long-term current use of insulinPost herpetic neuralgiaEssential hypertension, benignHyperlipidem ia, unspecified hyperlipidemia typeAtherosclerosi s of ely shoshone coronary artery of ely shoshone heart without angina pectorisIrritable bowel syndrome, unspecified typeHx of squamous cell carcinoma of skinHistory of colon polyps 9 Talia [address]erson[address] [place] [address], [address], [id number] , . tel: [phone] Referring Provider: Jayla Melgar, [address] [place] [address], [address] . tel:[phone] [facility], [address], [place], [place], [address] , tel: [phone] [facility] Type 2 diabetes mellitus with other specified complication, without long-term current use of insulinHyperlipide yi, unspecified hyperlipidemia typeEssential hypertension, benignPrimary osteoarthritis, unspecified siteSnoringAtheros clerosis of ely shoshone coronary artery of ely shoshone heart without angina pectorisThrombocyt openiaProstate cancer screeningPost herpetic neuralgiaDiverticu losis of intestine without bleeding, unspecified intestinal tract locationIrritable bowel syndrome, unspecified typeHx of squamous cell carcinoma of skinNonintractable headache, unspecified chronicity pattern, unspecified headache type 9 Talia Dickerson. [address] [place] [address], [address], [id number] , . tel: [phone] Referring Provider: Jayla Melgar, [address] [place] [address], [address] . tel:[phone] [facility], [address], [place], [place], [address] , tel: [phone] [facility] Thrombocythemia 8 Talia Dickerson. [address] [facility], [address], [id number] , . tel: [phone] [facility], [address], [place], [place], [address] , [place] tel: [phone] [facility] Body mass index (BMI) 28.0-28.9, adultPost herpetic neuralgiaType 2 diabetes mellitus with other specified complication, without long-term current use of insulinHyperlipide yi, unspecified hyperlipidemia typeEssential hypertension, benignAtherosclero sis of ely shoshone coronary artery of ely shoshone heart without angina pectorisIrritable bowel syndrome, unspecified typePrimary osteoarthritis, unspecified siteDiverticulosis of intestine without bleeding, unspecified intestinal tract locationHistory of colon polypsHx of squamous cell carcinoma of skinAllergic rhinitis, cause unspecifiedSnoring 8 Talia Dickerson. [address] [facility], [address], [id number] , [place]. tel: [phone] Referring Provider: Jayla Melgar, [address] [place] [address], [address] . tel:[phone] [facility], [address], [place], [place], [address] , tel: [phone] [facility] Essential hypertension, benignType 2 diabetes mellitus with other specified complication, without long-term current use of insulinHyperlipide yi, unspecified hyperlipidemia typeAtherosclerosi s of ely shoshone coronary artery of ely shoshone heart without angina pectorisPost herpetic neuralgiaIrritable bowel syndrome, unspecified typePrimary osteoarthritis, unspecified siteHistory of colon polypsHx of squamous cell carcinoma of skin 8 Talia Dickerson. [address] [facility], [address], [id number] , . tel: [phone] Referring Provider: Jayla Melgar, [address], [address] . tel:[phone] [facility], [address], [place], [place], [address] , tel: [phone] [facility] Atherosclerosis of ely shoshone coronary artery of ely shoshone heart without angina pectorisEssential hypertension, benignType 2 diabetes mellitus with other specified complication, without long-term current use of insulinHyperlipide yi, unspecified hyperlipidemia typePrimary osteoarthritis, unspecified siteIrritable bowel syndrome, unspecified typeDiverticulosis of intestine without bleeding, unspecified intestinal tract locationAllergic rhinitis, cause unspecifiedErectil e dysfunction, unspecified erectile dysfunction typeHx of squamous cell carcinoma of skinHistory of colon polypsFamily history of colon cancerPost herpetic neuralgia Talia Dickerson. [address] [place] [address], [id number] , . tel: [phone] Referring Provider: aJyla Melgar, [address] [place] [address], [address] [place] [address] . tel:[phone] [facility], [address], [place], [place], [address] , tel: [phone] [facility] Essential hypertension, benignType 2 diabetes mellitus with other specified complication, without long-term current use of insulinAtheroscler osis of ely shoshone coronary artery of ely shoshone heart without angina pectorisHyperlipid emia, unspecified hyperlipidemia typePrimary osteoarthritis, unspecified siteHerpes zoster without complication Talia Dickerson. [address], [address] [place] [address] , . tel: [phone] Referring Provider: Jayla Melgar, [address] [place] [address], [address] [place] [address] . tel:[phone] Family History Family Member Type Diagnosis Age At Onset Father Problem (finding) Coronary arter y disease, angina presence unspecified, unspecified vessel or lesion type, unspecified whether ely shoshone or transplanted heart Father Problem (finding) Mother Problem (finding) Diabetes melli tus of other type with complication, unspecified whether [facility] insulin use Immunizations Vaccine Date Status Comments Fluzone High-Dose, high dose , preservative free administered Source: New Immuniza tion Record SHINGRIX (Zoster vaccine recombinant, adjuvanted) administered Source: Public Agency SHINGRIX (Zoster vaccine recombinant, adjuvanted) administered Source: Public [facility] (Diluent Reconstitute d) COVID19 Vaccine, 0.3mL per dose, 2 doses, administered 21 days apart administered Source: [facility] [place] Fluzone High-Dose, high dose , preservative free administered Source: [facility] [place] Pfizer-BioNTech COVID19 Vaccine, 0.3mL per dose, 2 doses, administered 21 days apart administered Source: [facility] Pfizer-BioNTech COVID19 Vaccine, 0.3mL per dose, 2 doses, administered 21 days apart administered Source: [facility] [place] Fluzone High-Dose, high dose , preservative free administered Source: New Immuniza tion Record Fluzone Quad, split virus, 0.5mL dosage administered Source: Public Agen[facility] y Fluzone Quad, split virus, 0.5mL dosage administered Note: Pharmacy ; Daria rce: Public Agency Tdap administered Source: Other R egistry Fluzone Quad [id number], preservative free, split virus, 0.5mL dosage administered Source: Other Regist ry Pneumococcal conjugate PCV 13 administere d Source: Other Registry pneumococcal polysaccharide vaccine, 23 valent administered Source: Other Regist ry Zoster administered Source: Other R egistry Tdap administered Source: Other R egistry Payers Payer name Insurance type Covered green party ID Authoriza tion(s) MEDICARE MB [id number] [employer] MEDICARE SUPPLEMENT CI [id number] MEDICARE MB [id number] [employer] MEDICARE SUPPLEMENT CI [id number] MEDICARE MB [id number] [employer] MEDICARE SUPPLEMENT CI [id number] Social History Type Description Quantity Date Captured Comments Alcohol Use Details Unknown Caffeine Use Details Unknown Tobacco Use Status No Information Smoking Status No Information Sex Male Sexual Orientation Straight or heterosexual Gender Identity Male Chief Complaint And Reason For Visit No Information Reason For Referral Reason For Referral No Information Plan Of Treatment Date Type Action Status Goal Dietary manageme nt education, guidance, and counseling completed Goal Dietary manageme nt education, guidance, and counseling completed Goal Dietary manageme nt education, guidance, and counseling completed Goal Dietary manageme nt education, guidance, and counseling completed Goal Dietary manageme nt education, guidance, and counseling completed Goal Dietary manageme nt education, guidance, and counseling completed Goal Dietary manageme nt education, guidance, and counseling completed Goal Dietary manageme nt education, guidance, and counseling completed Goal Dietary manageme nt education, guidance, and counseling completed Goal Dietary manageme nt education, guidance, and counseling completed Goal Dietary manageme nt education, guidance, and counseling completed Referral Ordered: CT scan of chest without contrast ordered Referral Ordered: X-RAY EXAM OF LUMBAR SPINE, 2 or 3 VIEWS ordered Referral Ordered: Ultrasound of breast ordered Future Order: Lab Order BMP ([id number]), S ent on: Sent Future Order: Lab Order Hemoglob in A1c ([id number]), Collected on: , Sent on: Sent Future Order: Lab Order Comprehe nsive Metabolic (CMP) ([id number]), Collected on: , Sent on: Sent Future Order: Lab Order CBC AUTO DIFF ([id number]), Sent on: Sent Future Order: Lab Order Hemoglob in A1c ([id number]), Sent on: Sent Future Order: Lab Order Vitamin B12 ([id number]), Sent on: Sent Future Order: Lab Order Lipid Pa sherley ([id number]), Sent on: Sent Future Order: Lab Order Comprehe nsive Metabolic (CMP) ([id number]), Sent on: Sent Future Order: Lab Order Microalb umin/Creatinine Ratio ([id number]), Sent on: Sent History Of Present Illness Encounter Date Complaint History Of Prese nt Illness hpi Pt is here for r outine follow up of HTN, DM.Patient states that he has been feeling well.Hypertension p atient states that the blood pressure has been stable.Type 2 diabetes B S is stable.CAD p atient denies chest pain, shortness of breath, palpitations or dizziness. Prostate cancer s table. Urology follow-up.Hepatic steatosis p atient aware of diet and exercise precautions.Muscle cramps p atient states that he has been experiencing intermittent cramps in his legs and hands at times. He has been more active recently, doing wood work at the house and also plays guitar.Paresthesia-patient states that he has a experiencing intermittent numbness along the lateral border of his feet. He denies any pain.Lung nodule p eriodic follow-up.Osteoarthritis p atient states that the arthritic joint pains have been stable. hpi Patient presents today for a routine follow up of DM.Patient states that he is feeling better.Patient recently underwent cervical discectomy with cervical fusion. Patient states that the pain is slowly improving. He started physical therapy today. T2DM B S has been stable.CAD p atient denies chest pain or shortness of breath. Prostate cancer s table, follow-up with urology.Hepatic steatosis p atient is aware of diet and exercise precautions.Osteoarthritis?patient states that the joint pains are stable.IBS p atient states that the symptoms are stable.Lung nodule F ollow-up CT scan due 09/2022.Atherosclerosis of the aorta?noted on imaging.Horse shoe kidney s table. Monitor renal function. Medical Management Patient prese nts today for a Pre op exam for C-spine surgery on 10/29/21.Patient is here for preop clearance.Cervical spine stenosis with radiculopathy p piter is scheduled for cervical discectomy with fusion. Pt states that he has been experiencing neck pain which radiates towards the right shoulder. He has been experiencing some weakness in his right arm. Patient denies any tingling or numbness.CAD p atient denies chest pain, shortness of breath, palpitations or dizziness. He has been cleared by cardiology.Hypertension b lood pressure has been stable.Type 2 diabetes b lood sugars are stable.Hyperlipidemia l abs discussed with the patient. Patient is intolerant to statins. 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 Hepatic steatosis–patient is aware of diet and exercise precautions.Lung nodule C T scan report discussed with patient. Monitor the lung nodules closely. Recheck in one year.Thrombocytopenia s table.IBS p atient states that the symptoms have been stable.History of colon polyps/last colonoscopy 2014. Patient is aware hr needs to schedule follow-up colonoscopy.Prostate cancer s tatus post surgery/radiation therapy s table. Urology follow-up.Purpura P atjanette has easy bruising. He denies any bleeding. Medical management Hypertension b lood pressure has been stable. Patient is aware of diet and exercise precautions.CAD p atient denies chest pain, shortness of breath, palpitations or dizziness.Hyperlipidemia d iet controlled. Patient is intolerant to statins.Right lung nodule p piter is due for follow-up CT scan. He states that he will schedule it closer to home.Prostate cancer–status post surgery and radiation therapy. Patient states that he is doing better. He has nocturia. He denies incontinence or dysuria. He has follow-up with urology.Ventral hernia p atient states that he is scheduled for ventral hernia raphe on 08/06. He denies any local pain. He denies any problems with anesthesia or surgery in the past. Hepatic steatosis p atient aware of diet and exercise precautions.Osteoarthritis p atient states that the arthritic joint pains are stable.IBS with diarrhea p atient states that he had increased diarrhea while he was so going through radiation. Now it is much improved. He has occasional loose bowel movements. He denies abdominal pain, nausea, vomiting, bright red blood per rectum or melena. Medicare preventive The patient has not felt depressed and has had interest and pleasure doing things recently. The ''Up and Go'' test took less than 30 seconds and the patient does not need help with activities of daily living. The patient is not at risk for falls. The patient has not fallen in the last year. The fall(s) did not result in injury. Patient's activity level is vigorous. Patient exercises daily. The patient has smoke detectors, firearms, carbon monoxide detectors, gas heating in the home. There is radon in the patient's home. Patient reports using a seatbelt in vehicles. Patient reports a no certain diet diet. Patient reports taking a calcium supplement. Patient reports taking a vitamin D supplement. Patient reports taking a multivitamin daily. Patient reports taking folic acid daily. Relevant history is positive for alcohol use. Patient is a former tobacco user. In the past year the patient has had 4 or more drinks in a day 0 time(s). Screening services were reviewed and updated. Medical Management Patient prese [facility] today for a routine follow up of HTN, DM.Patient states that he is doing better. He has completed radiation therapy. Patient's symptoms of diarrhea are improving. Hypertension b lood pressure has been stable.CAD p atjanette denies chest pain, shortness of breath, palpitations or dizziness.Type 2 diabetes b lood sugars have been stable.Prostate cancer s tatus post surgery and radiation therapy. Urology follow-up. Ventral hernia s table. Patient denies any local pain. Lung nodule-noted to have 3 mm small lung nodule noted at the right lung base. Follow-up periodically.Leg cramps-patient complains of muscle cramps in his legs at night.Paresthesia of both feet p atjanette states that recently he has been experiencing tingling in his feet. He denies any pain.Hyperlipidemia p piter is intolerant to statins. He is aware of diet and exercise precautions.Hepatic steatosis p atient of appetite and exercise precautions.IBS s ymptoms are stable.History of colon polyps p piter is due for colonoscopy this year. He will schedule with Dr. Ellsworth. Medical Management Patient prese [facility] today for an Acute visit. Diarrhea p piter is undergoing radiation therapy for prostate cancer. Patient states that he has had intermittent loose bowel movements. He denies associated nausea, vomiting, abdominal pain. He denies any bright red blood per rectum or melena. Prostate cancer p atient is undergoing radiation therapy. Patient has noticed some nocturia. He denies urinary frequency or urgency. He denies dysuria.Pt is now on oxybutynin due to incontinence from radiation. Ventral hernia p atient states that he has noticed a small protrusion at the incision site. It is not painful.Hypertension b lood pressure has been stable [id number] states blood sugars have been stable. Medical Management Patient prese nts today for a routine follow up of HTN, DM.Patient states that he has been doing well.Hypertension-blood pressure has been stable. T2DM b lood sugars have been stable. Patient denies any hypoglycemic episodes.CAD p atient denies chest pain, shortness of breath, palpitations or dizziness. Patient has follow-up with cardiology.Hyperlipidemia p atient is aware of diet and exercise precautions. He is intolerant to statins.Prostate cancer u rology and oncology follow-up. Status post surgery and radiation therapy.Thrombocytopenia s table.Hepatic steatosis p atient is aware of diet and exercise precautions. IBS p atient states that the symptoms have been stable.Lung nodule n oted on CT scan 04/13. Patient is due for follow-up CT scan 04/14.DJD/chronic low back pain p atient complains of intermittent low back pain across the lower lumbar region. He denies radiation of the pain or associated symptoms.Neck pain p atient has been experiencing neck pain with certain range of motion. Patient was seen by orthopedist today.History of colon polyps p atient is due for colonoscopy this year. He will follow up with Dr. Ellsworth.Snoring-pt does snore at night. He denies daytime fatigue or somnolence.Dm Eye Exam-Dr. Chacon OD. Medical Management Patient prese nts today for a routine follow up of HTN, DM. Patient states that he has been feeling well. Hypertension b lood pressure has been stable. Type 2 diabetes b lood sugars have been stable. CAD p atient denies chest pain, shortness of breath, palpitations or dizziness. Hyperlipidemia p atient is aware of diet and exercise precautions. He is tolerating low dose simvastatin.Atherosclerosis of the aorta n oted on imaging. Patient aware of cardiovascular risk.Hepatic steatosis n oted on CT scan 04/13. Patient is aware of diet and exercise precautions.Prostate cancer S tatus post robotic prostatectomy 08/13. follow-up with urology. Radiation to start end of sep x 8 wks.Thrombocytopenia s table. Patient has not noticed significant bruising.Right lung nodule p atjanette noted to have 3 mm noncalcified pulmonary nodule in the posterior lateral basilar right lung on CT scan done 04/12/20 and also noted a calcified nodule medial right lung base likely a granuloma. Follow-up 04/14. Chronic low back pain?stable.Horseshoe kidney n oted on recent CT scan. IBS s ymptoms have been stable. History of colon polyps p atient is due for colonoscopy. History of squamous cell carcinoma of the skin p atient has not noticed any new skin lesions. Medical Management Pt presents t [facility] for a routine follow up of DM, HTN. Patient states that he has been doing well. Hypertension b lood pressure has been stable. CAD p atient denies chest pain, shortness of breath, palpitations or dizziness.Type 2 diabetes b lood sugars have been stable. Prostate cancer p atjanette states that he is scheduled for surgery in May. He denies urinary complaints.Hyperlipidemia p atient is aware of diet and exercise precautions. He denies side effects from the statin. Atherosclerosis of the aorta n oted on CT scan. Patient aware of the risk factors.Hepatic steatosis n oted on CT scan 04/13. Patient is aware of diet and exercise precautions.Right lung nodule p atient noted to have 3 mm noncalcified pulmonary nodule in the posterior lateral basilar right lung on CT scan done 04/12/20 and also noted a calcified nodule medial right lung base likely a granuloma.Horseshoe kidney n oted on recent CT scan. Chronic low back pain p atjanette states that he recently received cortisone injection in the right buttock, which has helped his back pain. History of colon polyps h e is due for colonoscopy later this year.History of squamous cell skin cancer p atient has not noticed any new skin lesion. Elevated PSA Pertinent histor y includes age over 50. Elevated PSA (comments) Patient presents for evaluation of elevated PSA. In 2019 the PSA was 4.0. In 2019 the PSA is 4.9. No hematuria, cystitis, weight loss, bone pain. Father with prostate cancer. Distant tobacco history. Diminishing forces stream. Nocturia times two. On baby aspirin to prevent heart disease. Medical Management Patient prese nts today for a routine follow up of DM.Type 2 diabetes b lood sugars have been stable. CAD p atient denies chest pain, shortness of breath, palpitations or dizziness. Hypertension b lood pressure has been stable. Hyperlipidemia p piter has tried several statins but stopped due to myalgia.Headache p atjanette states that for the past several weeks, he has had intermittent dull headaches. 4/10 intensity. 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 He denies any associated symptoms. He does have neck pain which seems to radiate to the back of the head.Urinary frequency p atjanette has noticed increased urinary frequency. He denies any hesitancy, urgency and dysuria. Diverticulosis s table. Chronic low back pain p piter has intermittent pain across his lower lumbar region. He denies radiation of the pain or associated symptoms. He denies any problem with walking. IBS s ymptoms have been stable. Erectile dysfunction s table. Thrombocytopenia- patient has been seen by hematology. History of colon polyps s table. Last colonoscopy 2014. Patient is aware he needs to schedule colonoscopy with Dr. Ellsworth. History of squamous cell skin cancer p atjanette has not noticed any new lesion. Medical Management Patient prese nts today for a routine follow up of DM, HTN.Patient states that he has been feeling well. Low back pain p piter has chronic intermittent low back pain. Patient states that since last 1 week, he has increased low back pain. He denies any injury. Patient states that the pain is in the right lower lumbar region. Patient states that it seems to radiate down the right leg. He denies associated tingling, numbness or weakness. Pain is moderate intensity.Gynecomastia p atient states that he has noticed his left breast to be larger. He denies any local pain. Erectile dysfunction p atient states that he has problem with maintaining erection.Hypertension?patient states that the blood pressure has been stable. Patient denies chest pain, shortness of breath, palpitations or dizziness. Type 2 diabetes p atient states that the blood sugar has been stable.CAD p atient denies chest pain or shortness of breath.Hyperlipidemia–patient is aware of diet and exercise precautions. He denies any side effects from the low-dose statin. IBS/history of colon polyps p atient denies abdominal pain or bowel complaints. He has follow-up with GI.Postherpetic neuralgia p atient states that he still has sensitivity around the left shoulder.History of squamous cell cancer of the skin p atient has not noticed any new lesions.Patient denies any other significant complaints. Medical Management Patient prese nts today for a routine follow up of DM, HTN.Patient states that he has been feeling well. Hypertension p atient states that the blood pressure has been stable. Patient denies chest pain, shortness of breath, palpitations or dizziness. Type 2 diabetes p atient states that the blood sugar has been stable.CAD p atient denies chest pain or shortness of breath.Hyperlipidemia p atient is aware of diet and exercise precautions. He denies any side effects from the low-dose statin. IBS/history of colon polyps p atient denies abdominal pain or bowel complaints. He has follow-up with GI.Postherpetic neuralgia p atient states that he still has sensitivity around the left shoulder but the symptoms are much improved.History of squamous cell cancer of the skin p atient has not noticed any new lesions.Patient denies any other significant complaints. Functional Status Date Functional Assessmen t No Information Instructions Date Instruction Additional Infor arti Please follow low ca rb diet and exercise regularly. Avoid concentrated sweets. Related to Type 2 diabetes mellitus with other specified complication, without long-term current use of insulin Dietary management e ducation, guidance, and counseling Related to Body mass index (BMI) 27.0-27.9, adult Please monitor your blood pressure daily. Call if average greater than 130/80. Follow low salt diet and exercise regularly. Related to Essential hypertension, benign Status: Able to self -manage condition. Goals: Your goal is to work on healthy coping habits. Related to Atherosclerosis of [place] coronary artery of [place] heart without angina pectoris Please follow low ca rb diet and exercise regularly. Avoid concentrated sweets.Status: Able to self-manage condition. Goals: Your goal is to work on healthy eating habits. Barriers: No barriers to goal achievement have been identified. Related to Type 2 diabetes mellitus with other specified complication, without long-term current use of insulin Dietary management e ducation, guidance, and counseling Related to Body mass index (BMI) 25.0-25.9, adult Prescribed activity/ exercise education Related to Body mass index (BMI) 25.0-25.9, adult Status: Able to self -manage condition. Goals: Your goal is to work on healthy coping habits. Related to Atherosclerosis of [place] coronary artery of [place] heart without angina pectoris Please monitor your blood pressure daily. Call if average greater than 130/80. Follow low salt diet and exercise regularly. Related to Essential hypertension, benign Maintain a low-fat, low-cholesterol diet and exercise regularly. Related to Hyperlipidemia, unspecified hyperlipidemia type Please follow low ca rb diet and exercise regularly. Avoid concentrated sweets.Status: Able to self-manage condition. Goals: Your goal is to work on healthy eating habits. Barriers: No barriers to goal achievement have been identified. Related to Type 2 diabetes mellitus with other specified complication, without long-term current use of insulin Giving encouragement to exercise Related to Body mass index (BMI) 26.0-26.9, adult Dietary management e ducation, guidance, and counseling Related to Body mass index (BMI) 26.0-26.9, adult Maintain a low-fat, low-cholesterol diet and exercise regularly. Related to Hyperlipidemia, unspecified hyperlipidemia type Status: Able to self -manage condition. Goals: Your goal is to work on healthy coping habits. Related to Atherosclerosis of [place] coronary artery of [place] heart without angina pectoris Please monitor your blood pressure daily. Call if average greater than 130/80. Follow low salt diet and exercise regularly. Related to Essential hypertension, benign Please follow low ca rb diet and exercise regularly. Avoid concentrated sweets.Status: Able to self-manage condition. Goals: Your goal is to work on healthy eating habits. Barriers: No barriers to goal achievement have been identified. Related to Type 2 diabetes mellitus with other specified complication, without long-term current use of insulin Weight monitoring Related to Bod y mass index (BMI) 27.0-27.9, adult Dietary management e ducation, guidance, and counseling Related to Body mass index (BMI) 27.0-27.9, adult Maintain a low-fat, low-cholesterol diet and exercise regularly. Related to Hyperlipidemia, unspecified hyperlipidemia type High fiber diet and maintain adequate hydration. Related to Irritable bowel syndrome, unspecified type Status: Able to self -manage condition. Goals: Your goal is to work on healthy coping habits. Related to Atherosclerosis of [place] coronary artery of [place] heart without angina pectoris Please follow low ca rb diet and exercise regularly. Avoid concentrated sweets.Status: Able to self-manage condition. Goals: Your goal is to work on healthy eating habits. Barriers: No barriers to goal achievement have been identified. Related to Type 2 diabetes mellitus with other specified complication, without long-term current use of insulin Please monitor your blood pressure daily. Call if average greater than 130/80. Follow low salt diet and exercise regularly. Related to Essential hypertension, benign Exercise promotion: stretching R elated to Body mass index (BMI) 26.0-26.9, adult Dietary management e ducation, guidance, and counseling Related to Body mass index (BMI) 26.0-26.9, adult Please monitor your blood pressure daily. Call if average greater than 130/80. Follow low salt diet and exercise regularly. Related to Essential hypertension, benign Please follow low ca rb diet and exercise regularly. Avoid concentrated sweets.Status: Able to self-manage condition. Goals: Your goal is to work on healthy eating habits. Barriers: No barriers to goal achievement have been identified. Related to Type 2 diabetes mellitus with other specified complication, without long-term current use of insulin Dietary management e ducation, guidance, and counseling Related to Body mass index (BMI) 27.0-27.9, adult Giving encouragement to exercise Related to Body mass index (BMI) 27.0-27.9, adult Status: Able to self -manage condition. Goals: Your goal is to work on healthy coping habits. Related to Atherosclerosis of [place] coronary artery of [place] heart without angina pectoris Please monitor your blood pressure daily. Call if average greater than 130/80. Follow low salt diet and exercise regularly. Related to Essential hypertension, benign High fiber diet and maintain adequate hydration. Related to Irritable bowel syndrome, unspecified type Maintain a low-fat, low-cholesterol diet and exercise regularly. Related to Hyperlipidemia, unspecified hyperlipidemia type Please follow low ca rb diet and exercise regularly. Avoid concentrated sweets.Status: Able to self-manage condition. Goals: Your goal is to work on healthy eating habits. Barriers: No barriers to goal achievement have been identified. Related to Type 2 diabetes mellitus with other specified complication, without long-term current use of insulin Dietary management e ducation, guidance, and counseling Related to Body mass index (BMI) 28.0-28.9, adult Prescribed activity/ exercise education Related to Body mass index (BMI) 28.0-28.9, adult High fiber diet and maintain adequate hydration. Related to Irritable bowel syndrome, unspecified type Please monitor your blood pressure daily. Call if average greater than 130/80. Follow low salt diet and exercise regularly. Related to Essential hypertension, benign Status: Able to self -manage condition. Goals: Your goal is to work on healthy coping habits. Related to Atherosclerosis of ely shosh[place] coronary artery of ely shoshone heart without angina pectoris Please follow low ca rb diet and exercise regularly. Avoid concentrated sweets.Status: Able to self-manage condition. Goals: Your goal is to work on healthy eating habits. Barriers: No barriers to goal achievement have been identified. Related to Type 2 diabetes mellitus with other specified complication, without long-term current use of insulin Maintain a low-fat, low-cholesterol diet and exercise regularly. Related to Hyperlipidemia, unspecified hyperlipidemia type Dietary management e ducation, guidance, and counseling Related to Body mass index (BMI) 28.0-28.9, adult Giving encouragement to exercise Related to Body mass index (BMI) 28.0-28.9, adult Dermatology follow up. Related t o Hx of squamous cell carcinoma of skin Status: Able to self -manage condition. Goals: Your goal is to work on healthy coping habits. 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 Related to Hyperlipidemia, unspecified hyperlipidemia type Please monitor your blood pressure daily. Call if average greater than 130/80. Follow low salt diet and exercise regularly. Related to Essential hypertension, benign Please follow low ca rb diet and exercise regularly. Avoid concentrated sweets.Status: Able to self-manage condition. Goals: Your goal is to work on healthy eating habits. Barriers: No barriers to goal achievement have been identified. Related to Type 2 diabetes mellitus with other specified complication, without long-term current use of insulin Giving encouragement to exercise Related to Body mass index (BMI) 28.0-28.9, adult Dietary management e ducation, guidance, and counseling Related to Body mass index (BMI) 28.0-28.9, adult I recommend we proce ed with a prostate biopsy. The risk and benefits of a prostate biopsy including lower urinary tract symptoms, urinary tract infection, sepsis, blood in semen, blood in urine, rectal bleeding were all explained. An information packet was provided. We will obtain a urine culture. Antibiotics to be taken prior to biopsy were provided. Related to Elevated PSA Maintain a low-fat, low-cholesterol diet and exercise regularly. Related to Hyperlipidemia, unspecified hyperlipidemia type High fiber diet and maintain adequate hydration. Related to Irritable bowel syndrome, unspecified type Please monitor your blood pressure daily. Call if average greater than 130/80. Follow low salt diet and exercise regularly. Related to Essential hypertension, benign Status: Able to self -manage condition. Goals: Your goal is to work on healthy coping habits. Related to Atherosclerosis of [place] coronary artery of [place] heart without angina pectoris Please follow low ca rb diet and exercise regularly. Avoid concentrated sweets.Status: Able to self-manage condition. Goals: Your goal is to work on healthy eating habits. Barriers: No barriers to goal achievement have been identified. Related to Type 2 diabetes mellitus with other specified complication, without long-term current use of insulin Dietary management e ducation, guidance, and counseling Related to Body mass index (BMI) 29.0-29.9, adult Giving encouragement to exercise Related to Body mass index (BMI) 29.0-29.9, adult Colonoscopy per Dr Shar rodriguez. Last colonoscopy 2014. Related to History of colon polyps Status: Able to self -manage condition. Goals: Your goal is to work on healthy coping habits. Related to Atherosclerosis of [place] coronary artery of [place] sh[place] heart without angina pectoris Dermatology follow up. Related t o Hx of squamous cell carcinoma of skin Please monitor your blood pressure daily. Call if average greater than 130/80. Follow low salt diet and exercise regularly. Related to Essential hypertension, benign High fiber diet and maintain adequate hydration. Related to Irritable bowel syndrome, unspecified type Maintain a low-fat, low-cholesterol diet and exercise regularly. Related to Hyperlipidemia, unspecified hyperlipidemia type Please follow low ca rb diet and exercise regularly. Avoid concentrated sweets.Status: Able to self-manage condition. Goals: Your goal is to work on healthy eating habits. Barriers: No barriers to goal achievement have been identified. Related to Type 2 diabetes mellitus with other specified complication, without long-term current use of insulin Dietary management e ducation, guidance, and counseling Related to Body mass index (BMI) 28.0-28.9, adult Giving encouragement to exercise Related to Body mass index (BMI) 28.0-28.9, adult Colonoscopy per Dr Shar rodriguez. Last colonoscopy 2014. Related to History of colon polyps Dermatology follow up. Related t o Hx of squamous cell carcinoma of skin High fiber diet and maintain adequate hydration. Related to Irritable bowel syndrome, unspecified type Status: Able to self -manage condition. Goals: Your goal is to work on healthy coping habits. 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 Related to Hyperlipidemia, unspecified hyperlipidemia type Please monitor your blood pressure daily. Call if average greater than 130/80. Follow low salt diet and exercise regularly. Related to Essential hypertension, benign Status: Able to self -manage condition. Barriers: No barriers to goal achievement have been identified. Goals: Your goal is to work on healthy eating habits. Related to Type 2 diabetes mellitus with other specified complication, without long-term current use of insulin Assessments Type Assessment Date No Information Patient Care Teams Name Effective Dates (start - stop) Status Members No Information
--- OUTSIDE RECORDS SUMMARY | 2025-01-14 11:15 | XMS_ITS | Patient Health Record ---
Author Organization [facility], Address [address] [place] [address] Care Team Providers Care Electric Meter Repairer Name Role Phone KristinjovonChente Primary Care Provider Christian Huang [phone] ALLERGIES No Known Allergies RESULTS Component Value Reference Range Notes X ray : Lumbar spine 5 views , AP, Lateral, Spot, Flexion and Extension Reviewed date:11/18/2024 11:55:36 AM Interpretation:1056 Performing Lab: Notes/Report: 1056 REASON FOR REFERRAL No Information MEDICATIONS Medication SIG (Take, Route, Fr equency, Duration) Notes Start Date End Date Status Meloxicam 15 MG 1 tablet once daily oral with food for 90 days 01/03/2023 Active metFORMIN HCl Active Vitamin D3 Active Metoprolol Tartrate Active Vitamin B12 Active Tylenol Not-Taking Aspirin 81 Active Ezetimibe Active PROBLEMS Problem Type ICD Code Onset Dates Problem Status W/U Status Risk SNOMED Code Notes Problem Degenerative disc disease, cervical (M50.30) Active confirmed Degeneration of cervical intervertebral disc (90844381) Problem Other cervical disc degeneration, high cervical region (M50.31) Active confirmed Degeneration of cervical intervertebral disc (81760364) Problem Other cervical disc degeneration at C4-C5 level (M50.321) Active confirmed Degeneration of cervical intervertebral disc (69274596) Problem Other cervical disc degeneration at C6-C7 level (M50.323) Active confirmed Degeneration of cervical intervertebral disc (46773062) Problem DDD (degenerative disc disease), lumbar (M51.36) Active confirmed Degenerative disc disease (27894927) Problem Facet degeneration of lumbar region (M47.816) Active confirmed Lumbosacral spondylosis without myelopathy (64141968) Problem HNP (herniated nucleus pulposus), cervical (M50.20) Active confirmed Displaceme nt of cervical intervertebral disc without myelopathy (31990717) Problem Spinal enthesopathy, lumbosacral region (M46.07) Active confirmed Spinal enthesopathy (62490129) Problem Other cervical disc degeneration at C5-C6 level (M50.322) Active confirmed Degeneration of cervical intervertebral disc (70318055) Problem Bilateral primary osteoarthritis of knee (M17.0) Active confirmed Osteoarthritis of knee (113045001) Problem Kyphosis of cervical region (M40.202) Active confirmed Problem Diabetes (E11.9) Active confirmed Type II diabetes mellitus without complication (346159123) Problem Vitamin D deficiency (E55.9) Active confirmed Vitamin D deficiency (12105966) Problem 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) Active confirmed Osteoarthritis of hip (474611447) Problem Degenerative joint disease of right hip (M16.11) Active confirmed Localized, primary osteoarthritis of the pelvic region and thigh (385803245) Problem Spinal enthesopathy of lumbar region (M46.06) Active confirmed Spinal enthesopathy of lumbar region (122058220380051) VITAL SIGNS Height 72 in 11/18/2024 Weight 190 lbs 11/18/2024 BMI 25.77 kg/m2 11/18/2024 Encounters Encounter Location Date Provider Diagnosis [facility], [address] [address] 11/18/2024 Christian Sparks Other low back pain M54.59 ; Disc Degeneration, Lumbar Region with Leg Pain M51.361 ; Facet degeneration of lumbar region M47.816 ; Spinal enthesopathy of lumbar region M46.06 ; Myalgia, other site M79.18 and Hip pain, right M25.551 ASSESSMENTS Encounter Date Diagnosis Assessment Notes Treatment Notes Treatment Clinical Notes 11/18/2024 Other low back pain (ICD-10 - M54.59) 11/18/2024 Disc Degeneration, Lumbar Region with Leg Pain (ICD-10 - M51.361) 11/18/2024 Facet degeneration of lumbar region (ICD-10 - M47.816) 11/18/2024 Spinal enthesopathy of lumbar region (ICD-10 - M46.06) 11/18/2024 Myalgia, other site (ICD-10 - M79.18) 11/18/2024 Hip pain, right (ICD-10 - M25.551) PLAN OF TREATMENT Pending Test Test Name Order Date CBC With Differential/Platelet PT AND PTT 10/01/2021 Chem-Comprehensive 10/01/2021 MEDICAL CLEARANCE--You need to call your medical doctor and tell them you need medical clearance in order to proceed with surgery. They must fax us something IN WRITING to #[phone]. We must have this to proceed with surgery. 10/01/2021 Cardiac Clearance - Contact your heart doctor and explain you need a cardiac clearance statement in order to proceed with spine surgery. This note must be faxed to #[phone]. 10/01/2021 Insurance Providers Payer Name Payer Address Payer Phone Subscriber Number Group Number Insured Name Patient Relationship to Insured Coverage Start Date Coverage End Date Medicare [place] [address] [address] [place] [address] [id number] Abdifatah Lowery Self - patient is the insured 6 [employer] Supplemental Benefits [address] [address] [place] [address] [id number] Plan G Abdifatah Lowery Self - patient is the insured 9 MEDICATIONS ADMINISTERED Medication Instructions Date of Administration Dosage Notes Kenalog 10 mg (1 Unit) [facility]-[id number] 02/18/2022 4 units Kenalog 10 mg (1 Unit) [id number] 02/18/2022 4 units MEDICAL (GENERAL) HISTORY Medical History History ICD Code Hypertension CAD Diabetes for last 20 years Joint pain Neck pain Back pain Herniated disc Numbness in feet Peripheral neuropathy Prostate cancer Denies h/o emotional/psychiatric disorde r Denies h/o drug/chemical dependency Surgical History Surgery Date(Month/Year) Siddharth knees 1978 & 1979 Siddharth wrists 1994 Prostate removal 2019 C4-C7 ACDF 2021 Hospitalization History Reason Date(Month/Year) He has been hospitalized.
--- OUTSIDE RECORDS SUMMARY | 2025-01-14 11:15 | XMS_ITS | Encounter Summary ---
Author Organization [facility] Address [address] [place] [address] Care Team Providers Care Tanner Rotary Drum Continuous Process Name Role Phone Jayla Melgar MD Primary Care Provider Encounter Details Date Type Department Care Team (Late st Contact Info) Description 08/05/2018 Lab Requisition [facility] [address] [place] [address] [place] [address] [address] [place] [address] Social History Tobacco Use Types Packs/Day Years Used Date Smoking Tobacco: Never Assessed Sex and Gender Information Value Date Recorded Sex Assigned at Not on file Legal Sex Male 6:33 AM [employer] Gender Identity Not on file Sexual Orientation Not on file documented as of this encounter Plan of Treatment Not on file documented as of this encounter Procedures Procedure Name Priority Date/Time Associated Diagnosis Comments DERMATOPATHOLOGY Routine 08/04/2018 12:0 0 AM [employer] documented in this encounter Results * DERMATOPATHOLOGY (08/04/2018 12:00 AM [employer]) Case Report Dermatopathology Report Case: [id number] Authorizing Provider: Yamilet Ardon MD Collected: 08/04/2018 12:00 AM Pathologist: Ji Hinson MD Received: 08/05/2018 02:11 PM Specimen: Skin, left sup helix 8 9:24 AM [employer] [facility] DERMATOPATHOLOGY LABORATORY Final Diagnosis Specimen A. SKIN, left sup helix: HYPERPLASTIC (HYPERTROPHIC) ACTINIC KERATOSIS; EXTENDING TO THE BASE OF THE SPECIMEN (L57.0) (see microscopic description and comment) 9:24 AM [facility] DERMATOPATHOLOGY LABORATORY at [address] [facility] Clinical History R/O SCC. 9:24 AM [facility] DERMATOPATHOLOGY LABORATORY Gross Description Specimen A: Received is one formalin filled container labeled with the patient's name and designated left sup helix. The specimen consists of a shave biopsy measuring [id number]. Jar 0. 9:24 AM [facility] DERMATOPATHOLOGY LABORATORY Microscopic Description Specimen A. SKIN, left sup helix: There is hyperkeratosis alternating with parakeratosis. There is epidermal hyperplasia with disorderly maturation of keratinocytes with nuclear pleomorphism confined to the lower half of the epidermis. This process extends to the base of the specimen. COMMENT: A squamous cell carcinoma cannot be ruled out. 9:24 AM [facility] DERMATOPATHOLOGY LABORATORY Disclaimer An external and internal positive and negative controls are appropriate for the histochemical, immunohistochemical and immunofluorescence stain(s) in this case (if any), except where stated explicitly. The performance characteristics of the stain(s) cited in this report were developed and its performance characteristic determined by the Dermatopathology Laboratory at [facility]. These tests need not be, and therefore are not, approved by the [place] Food and Drug Administration. The tests are used for clinical purposes. Billing Codes Specimen Charges Stain Charges 26024 1 9:24 AM [facility] DERMATOPATHOLOGY LABORATORY Embedded Images 9:24 AM [facility] DERMATOPATHOLOGY LABORATORY Pathology/Cytolog y TISSUE SPECIMEN FROM SKIN / Unknown 08/04/2018 08/05/2018 2:11 PM [employer] us Yamilet Ardon MD LAB - PATHOLOGY/CYTOLOGY [facility] Final Result DERMATOPATHOLOGY LABORATORY [facility] - Department of Dermatology [address] [place] [address], [facility] [phone] documented in this encounter Visit Diagnoses Not on filedocumented in this encounter Care Teams Tanner Rotary Drum Continuous Process Relationship Specialty [place] [address] [address] [facility] [address] [place] [address] PCP - General 08/05/18 documented as of this encounter
--- OUTSIDE RECORDS SUMMARY | 2025-01-14 11:15 | XMS_ITS | Encounter Summary ---
Author Organization [facility] Healthcare Address [address] [place] [address] Care Team Providers Care Optical Laboratory Mechanic Name Role Phone Jayla Melgar MD Primary Care Provider [phone] Leonides Fernando MD Unavailable [phone] Chente Terrazas MD Primary Care Provider [phone] Encounter Details Date Type Department Care Team (Late st Contact Info) Description 04/11/2020 Telephone [facility] - Imaging [address] [place] [address] [place] [address] [facility] [address] [place] [address] Social History Tobacco Use Types Packs/Day Years Used Date Smoking Tobacco: Never Assessed Sex and Gender Information Value Date Recorded Sex Assigned at Not on file Legal Sex Male 1:44 PM CDT Gender Identity Not on file Sexual Orientation Not on file documented as of this encounter Plan of Treatment Not on file documented as of this encounter Visit Diagnoses Not on filedocumented in this encounter Care Teams Optical Laboratory Mechanic Relationship Specialty [place] [address] [facility] [address] [place] [address] PCP - General 04/11/20 07/07/23 Chente Terrazas MD [address] [address] PCP - General Internal Medicine 07/08/23 [place] [address] [place] [address] Consulting Physician General Surgery 06/15/20 documented as of this encounter
--- OUTSIDE RECORDS SUMMARY | 2025-01-14 11:15 | XMS_ITS ---
Author Organization [facility] Address [address] [place] [address] Care Team Providers Care Cow Tender Name Role Phone Chente Terrazas Primary Care Provider Christian Huang [phone] ALLERGIES No Known Allergies RESULTS Component Value Reference Range Notes X ray : Lumbar spine 5 views , AP, Lateral, Spot, Flexion and Extension Reviewed date:11/18/2024 11:55:36 AM Interpretation:1056 Performing Lab: Notes/Report: 1056 REASON FOR VISIT Lumbar MEDICATIONS Medication SIG (Take, Route, Fr equency, Duration) Notes Start Date End Date Status Meloxicam 15 MG 1 tablet once daily oral with food for 90 days 01/03/2023 Active metFORMIN HCl Active Vitamin D3 Active Metoprolol Tartrate Active Tylenol Not-Taking Vitamin B12 Active Aspirin 81 Active Ezetimibe Active PROBLEMS Problem Type ICD Code Onset Dates Problem Status W/U Status Risk SNOMED Code Notes Problem Spinal enthesopathy of lumbar region (M46.06) Active confirmed Spinal enthesopathy of lumbar region ([id number] ) VITAL SIGNS BMI 25.77 kg/m2 11/18/2024 Height 72 in 11/18/2024 Weight 190 lbs 11/18/2024 Encounters Encounter Location Date Provider Diagnosis [facility], [address] [place] [address] 11/18/2024 Christian Sparks Other low back pain [...] right (ICD-10 - M25.551) PLAN OF TREATMENT Medication Medication Name Sig Start Date Stop Date Notes Meloxicam 15 MG 1 tablet once daily oral with food for 90 days 01/03/2023 Progress Notes * Examination Category Sub-Category Detail Notes General Examination GENERAL: Patient is a lert and cooperative. He moves about the room in a cautious fashion. He does not walk with an obvious list/limp NECK: No tenderness to pal pation, no spasm. Cervical ROM reduced by 25% in all directions. Moderate kyphosis. Spurling's test negative HEART: Regular rate and rhy thm LUNGS: Clear to auscultatio n in all joiner ABDOMEN: No tenderness to pal pation, bowel sounds present all four quadrants NEUROLOGIC: UE neurologic exam r eveals symmetric DTR's, intact sensation, 5+/5+ motor strength. Sophia's sign negative. LE neurologic exam reveals symmetric DTR's, intact sensation, 5+/5+ motor strength. SLR testing negative. No clonus, negative Babinski's sign involving LE's SKIN: No evidence of skin rashes or dermal lesions MUSCULOSKELETAL: Thoracic exam reveal s no tenderness to palpation, just tension in interscapular musculature. Lumbar exam reveals tension, but no spasm. Lumbar ROM reveals FF 95 degrees, EXT 35 degrees, SB 45 degrees bilaterally. He can heel and toe walk. Lumbosacral exam reveals focal tenderness to palpation involving R. SI region aggravated with reversed extension test. Gaenslen's sign positive. Rico sign positive PSYCHIATRIC: Mood and affect appe ar normal HEENT: No masses, PERRLA, E OM intact, no nasal drainage, no lymphadenopathy JOINTS: Hip log roll testing reveals decreased internal rotation involving bilateral hips. FABERE test elicits discomfort at endpoints of rotation HEMATOLOGIC: No evidence of exces sive bruising or bleeding
--- OUTSIDE RECORDS SUMMARY | 2025-01-14 11:16 | XMS_ITS | Referral Summary ---
Author Organization [facility] Healthcare Address [address] [place] [address] Care Team Providers Care Water Plant Operator Name Role Phone Leonides Fernando MD Unavailable [phone] Chente Terrazas MD Primary Care Provider [phone] Allergies No known active allergies Medications metFORMIN (GLUCOPHAGE) 500 mg tablet Take 500 mg by mouth daily after dinner Active metoprolol XL (TOPROL-XL) 25 mg extended release tablet Take 25 mg by mouth nightly Active aspirin 81 mg enteric coated tablet Take 1 tablet (81 mg total) by mouth daily Hold for 5 days 06/15/2020 Active oxyCODONE-aceta minophen (PERCOCET) 5-325 mg per tabletIndicatio ns:Pain Take 1 tablet by mouth every 4 (four) hours as needed for pain 30 tablet 08/06/2021 Active Active Problems Problem Noted Date Diagnosed Date Type 2 diabetes mellitus 06/05/2020 Hypertension 06/05/2020 CAD (coronary artery disease) 06/05/2020 Hypercholesteremia 06/05/2020 Prostate cancer 05/11/2020 Overview (05/11/2020): Added automatically from request for surgery [id number] Social History Tobacco Use Types Packs/Day Years Used Date Smoking Tobacco: Former Cigarettes 3 20 1 966 - 1986 Smokeless Tobacco: Never Tobacco Cessation:Counseling Given: No Alcohol Use Standard Drinks/Week Comments Yes 2 (1 standard drink = 0.6 oz pur e alcohol) AUDIT-C Answer Date Recorded Q1: How often do you have a drink containing alc ohol? 2-4 times a month 07/24/2021 Q2: How many drinks containi ng alcohol do you have on a typical day when you are drinking? 1 or 2 07/24/2021 Q3: How often do you have si x or more drinks on one occasion? Never 07/24/2021 Sex and Gender Information Value Date Recorded Sex Assigned at Not on file Legal Sex Male 1:44 PM CDT Gender Identity Not on file Sexual Orientation Not on file Last Filed Vital Signs Vital Sign Reading Time Taken Comments Blood Pressure 152/74 08/06/2021 5:30 PM VP CUSTOMER SERVICE Pulse 67 08/06/2021 5:30 PM VP CUSTOMER SERVICE Temperature 36.1 C (96.9 F) 08/06/2021 5:00 PM VP CUSTOMER SERVICE Respiratory Rate 16 08/06/2021 5:15 PM VP CUSTOMER SERVICE Oxygen Saturation 98% 08/06/2021 5:30 PM VP CUSTOMER SERVICE Inhaled Oxygen Concentration - - Weight 87.1 kg (192 lb) 07/24/2021 11:48 AM VP CUSTOMER SERVICE Height 182.9 cm (6') 07/24/2021 11:48 AM VP CUSTOMER SERVICE Body Mass Index 26.04 07/24/2021 11:48 AM VP CUSTOMER SERVICE Plan of Treatment Not on file Medical Devices Implanted Type Area Neonatal Surgeon Device Identifier Shelf Expiration Date Model / Serial / Lot [employer]/C R [employer] [id number] Ventralight St Sepra Echo Ps 6x4in Monofilament Absorbable Low Latex Free - [id number] Implanted:Qty: 1 on 08/06/2021 by Joshua Appiah MD at [facility] [employer] [id number] / / [id number] Procedures Procedure Name Priority Date/Time Associated Diagnosis Comments EGFR Routine 06/15/2020 5:00 AM CDT HEMOGLOBIN A1C Routine 06/05/2020 12:35 PM CDT Pre-op evaluation CT ABDOMEN PELVIS W CONTRAST Schedule Routine, Read Routine (OP Routine) 04/12/2020 1:26 PM CDT Prostate cancer (HCC) from Last 3 Months or Most Recently Relevant to Health Maintenance Results * eGFR (06/15/2020 5:00 AM CDT) eGFR 88 mL/min/1.7 3 m2 [facility] Comment: Interpretive Data Reference Interval Normal >/= 90 mL/min/1.73m2 Mildly decreased* 60 - 89 mL/min/1.73m2 Mildly to moderately decreased 45 - 59 mL/min/1.73m2 Moderately to severely decreased 30 - 44 mL/min/1.73m2 Severely decreased 15 - 29 mL/min/1.73m2 Kidney Failure < 15 mL/min/1.73m2 *Relative to young adult level If -[place] multiply value by 1.16. Estimated glomerular filtration rate is determined by the CKD-EPI equation recommended by the National Kidney Foundation (KDIGO 2012 Clinical Practice Guideline for the Evaluation and Management of Chronic Kidney Disease. Kidney Intnl Suppl Aug 2012;3:1). The CKD-EPI equation should not be used for patients with unstable renal function and has not been validated in children and those over 70. Current interpretive data was last reviewed 2016. Blood specimen (specimen) 06/15/2020 5:00 AM CDT 06/15/2020 6:00 AM CDT us Leonides Fernando MD LAB BLOOD ORDERABLES Fin al Result Performing Organization Address City/State/[facility] Co de Phone Number [facility] [address] Department [place] [address] * (ABNORMAL) Hemoglobin A1c (06/05/2020 12:35 PM CDT) Hgb A1C 6.4(H) 4.0 - 5.6 % [facility] Estimated Average Glucose 137 mg/dL [facility] Comment: The ADA recommends reporting an estimated Average Glucose (eAG) with all Hemoglobin A1c results using the equation derived from a study of 507 normal and diabetic adults. Minority populations were underrepresented and children were not included. (Diabetes Care 31:4965-1078, 2008). The eAG is not equivalent to a fasting glucose. Blood specimen (specimen) 06/05/2020 12:35 PM CDT 06/05/2020 1:05 PM CDT us Yue Bowie NP LAB BLOOD ORDERABLES Final Result [facility] [address] Department [place] [address] * CT Abdomen Pelvis W Contrast (04/12/2020 1:26 PM CDT) Anatomical Region Laterality Modality Body N/A Computed Tomogra phy 04/12/2020 2:25 PM CDT Impressions 04/12/2020 2:[address] abdomen impression: 1. There is a 3 mm noncalcified pulmonary nodule in the posterolateral basilar right lung. Another small nodule in the medial right lung base appears calcified consistent with a granuloma. Statistically, the noncalcified nodule is probably related to an old granulomatous nodule is well. 2. Mild eventration of left hemidiaphragm. 3. No obvious signs of metastatic disease identified in the upper abdomen or upper retroperitoneum. 4. Advanced hepatic steatosis. 5. 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 No acute urinary tract abnormalities. 6. Mild atherosclerotic change of the aorta and iliac arteries. 7. Diverticulosis of the colon without signs of acute diverticulitis. CT pelvis impression: 1. No obvious signs of metastatic disease identified in the pelvis. 2. Advanced diverticulosis of the distal descending and sigmoid colon without signs of acute diverticulitis currently. 3. No visualized osseous metastatic foci. Electronically signed by: Samantha Sandoval 04/12/2020 2:41 PM CDT Exam: CT ABDOMEN PELVIS W CONTRAST Date/Time of Exam: 04/12/2020 2:45 PM Reason For Exam: prostate cancer. Staging evaluation. Assessment for metastatic disease. Diagnosis: Prostate cancer (CMS/HCC) [C61 (ICD-10-CM)] Findings: Helical axial images of the abdomen and pelvis were obtained during IV administration of 95 mL Optiray 350. Sagittal and coronal reformats generated. No prior similar exams for comparison. Lung window images demonstrate linear parenchymal scar formations in the inferior lingular segment of the left lung. There is a calcified granulomatous nodule only a few millimeters in size in the medial right lung base. A 3 mm subpleural pulmonary nodule is present in the lateral right lung base in the right lower lobe without definitive calcification. This is nonspecific but may represent an old granulomatous scar. This is best seen on series 2 image 8. The lung bases are clear of acute infiltrates. The inferior pleural spaces are clear. There is eventration of the left hemidiaphragm, mild. The heart is normal in size and shape. No pericardial effusion. No hiatal hernia. There is markedly decreased attenuation character homogeneously and diffusely throughout the hepatic parenchyma suggesting fatty change in the liver. No focal hepatic mass lesion is seen. No biliary ductal dilatation is seen. The gallbladder is unremarkable. The spleen is normal in size and shape with normal features. The pancreas is unremarkable. There are normal features of the adrenal glands. There is a developmental anomaly of horseshoe type kidney with fusion of the lower pole segments across the midline. The renal parenchyma appears preserved bilaterally. No signs of ureteral obstruction or hydronephrosis. No lymphadenopathy is seen in the abdomen or retroperitoneum. Mild vascular calcification is present in the abdominal aorta without abdominal aortic aneurysm. Iliac arteries are mildly calcified. There do not appear to be signs of abnormal distention of the stomach or bowel segments. No signs of free air or ascites. No pericecal inflammation. There are changes of diverticular disease of the colon. More numerous diverticuli are seen in the left colon. No anterior abdominal wall hernia defects. Normal-appearing appendix. Scans continuing into the pelvis demonstrate grossly normal features of the urinary bladder. The seminal vesicles are unremarkable. The prostate gland appears to be normal in size and shape. There is lack of an obvious definable pelvic mass. No pelvic lymphadenopathy evident. No pelvic fluid collections. No inguinal hernia defects. There are numerous diverticuli throughout the distal descending and sigmoid colon without segmental inflammation. Bone window images reveal no obvious lytic or blastic bony destructive changes the visualized skeletal structures. Procedure Note Avinash Zabala MD - 04/12/2020 Exam: CT ABDOMEN PELVIS W CONTRAST Date/Time of Exam: 04/12/2020 2:45 PM Reason For Exam: prostate cancer. Staging evaluation. Assessment for metastatic disease. Diagnosis: Prostate cancer (CMS/HCC) [C61 (ICD-10-CM)] Findings: Helical axial images of the abdomen and pelvis were obtained during IV administration of 95 mL Optiray 350. Sagittal and coronal reformats generated. No prior similar exams for comparison. Lung window images demonstrate linear parenchymal scar formations in the inferior lingular segment of the left lung. There is a calcified granulomatous nodule only a few millimeters in size in the medial right lung base. A 3 mm subpleural pulmonary nodule is present in the lateral right lung base in the right lower lobe without definitive calcification. This is nonspecific but may represent an old granulomatous scar. This is best seen on series 2 image 8. The lung bases are clear of acute infiltrates. The inferior pleural spaces are clear. There is eventration of the left hemidiaphragm, mild. The heart is normal in size and shape. No pericardial effusion. No hiatal hernia. There is markedly decreased attenuation character homogeneously and diffusely throughout the hepatic parenchyma suggesting fatty change in the liver. No focal hepatic mass lesion is seen. No biliary ductal dilatation is seen. The gallbladder is unremarkable. The spleen is normal in size and shape with normal features. The pancreas is unremarkable. There are normal features of the adrenal glands. There is a developmental anomaly of horseshoe type kidney with fusion of the lower pole segments across the midline. The renal parenchyma appears preserved bilaterally. No signs of ureteral obstruction or hydronephrosis. No lymphadenopathy is seen in the abdomen or retroperitoneum. Mild vascular calcification is present in the abdominal aorta without abdominal aortic aneurysm. Iliac arteries are mildly calcified. There do not appear to be signs of abnormal distention of the stomach or bowel segments. No signs of free air or ascites. No pericecal inflammation. There are changes of diverticular disease of the colon. More numerous diverticuli are seen in the left colon. No anterior abdominal wall hernia defects. Normal-appearing appendix. Scans continuing into the pelvis demonstrate grossly normal features of the urinary bladder. The seminal vesicles are unremarkable. The prostate gland appears to be normal in size and shape. There is lack of an obvious definable pelvic mass. No pelvic lymphadenopathy evident. No pelvic fluid collections. No inguinal hernia defects. There are numerous diverticuli throughout the distal descending and sigmoid colon without segmental inflammation. Bone window images reveal no obvious lytic or blastic bony destructive changes the visualized skeletal structures. IMPRESSION: CT abdomen impression: 1. There is a 3 mm noncalcified pulmonary nodule in the posterolateral basilar right lung. Another small nodule in the medial right lung base appears calcified consistent with a granuloma. Statistically, the noncalcified nodule is probably related to an old granulomatous nodule is well. 2. Mild eventration of left hemidiaphragm. 3. No obvious signs of metastatic disease identified in the upper abdomen or upper retroperitoneum. 4. Advanced hepatic steatosis. 5. 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 No acute urinary tract abnormalities. 6. Mild atherosclerotic change of the aorta and iliac arteries. 7. Diverticulosis of the colon without signs of acute diverticulitis. CT pelvis impression: 1. No obvious signs of metastatic disease identified in the pelvis. 2. Advanced diverticulosis of the distal descending and sigmoid colon without signs of acute diverticulitis currently. 3. No visualized osseous metastatic foci. Electronically signed by: Avinash Zabala M.D. Leonides Fernando MD IMG CT PROCEDURES Final Result from Last 3 Months or Most Recently Relevant to Health Maintenance Insurance MEDICARE [facility] MEDICARE SUPPLEMENT INSURANCE Member Subscriber Plan / Payer (Ef fective 2020-Present) Name:Abdifatah Lowery Relation to Subscriber:Self Name:Abdifatah Lowery Payer ID:[id number] (NAIC) Group ID:Not on file Type:[id number] Security Address: [address] [place] [address] MEDICARE [facility] MEDICARE SUPPLEMENT INSURANCE MEDICARE [facility] MEDICARE SUPPLEMENT INSURANCE Advance Directives For more information, please contact: [phone] Documents on File Type Date Recorded Patient Textile Science Technician Expl anation ADVANCE DIRECTIVE 08/07/2021 2:53 PM Yvon r of Predictive Maintenance Technician-Medical ADVANCE DIRECTIVE 08/07/2021 2:49 PM Haleigh whatley Will ADVANCE DIRECTIVE 10/15/2020 9:14 AM ADVANCE DIRECTIVE 06/14/2020 5:53 AM * Full Code (Latest Code Status on File) Date Activated Date Inactivated Comments 06/14/2020 2:20 PM 06/15/2020 4:08 PM Care Teams Water Plant Operator Relationship Specialty Start Date End Date Chente Terrazas MD [address] [address] PCP - General Internal Medicine 07/08/23 [place] [address] [place] [address] Consulting Physician General Surgery 06/15/20
--- OUTSIDE RECORDS SUMMARY | 2025-01-14 11:16 | XMS_ITS | Clinical Summary ---
Author Organization [facility] Healthcare Address [address] [place] [address] Care Team Providers Care Photo Tube Assembler Name Role Phone Leonides Fernando MD Unavailable [phone] Chente Terrazas MD Primary Care Provider [phone] Allergies No known active allergies Medications metFORMIN [...] (05/11/2020): Added automatically from request for surgery [id number] Surgical History Surgery Date Site/Laterality Comments KNEE SURGERY arthroscopy bilat. left 1978. right 1984. WRIST SURGERY 08/25/1994 - 08/24/1995 Bilateral bilat carpal tunnel PROSTATE SURGERY 05/25/2020 - 06/24/2020 prostectomy COLONOSCOPY 08/25/2015 - 08/24/2016 Medical History Medical History Date Comments Type 2 diabetes mellitus (HCC) 06/05/2020 Hypertension 06/05/2020 CAD (coronary artery disease) 06/05/2020 Hypercholesteremia 06/05/2020 Motion sickness Diverticulitis Cancer (HCC) prostate removed , radiation only last tx 02/2021. no chemo Chronic pain disorder 03/2021 pain, inje ction in neck by pain management x1. Family History Medical History Relation Name Comments Heart attack Father Relation Name Status Comments Father Social History Tobacco Use Types Packs/Day Years [...] on file Sexual Orientation Not on file Obstetrics History Last Filed Vital Signs Vital Sign Reading Time Taken Comments Blood Pressure 152/74 08/06/2021 5:30 PM LEAF SUCKER OPERATOR Pulse 67 08/06/2021 5:30 PM LEAF SUCKER OPERATOR Temperature 36.1 C (96.9 F) 08/06/2021 5:00 PM LEAF SUCKER OPERATOR Respiratory Rate 16 08/06/2021 5:15 PM LEAF SUCKER OPERATOR Oxygen Saturation 98% 08/06/2021 5:30 PM LEAF SUCKER OPERATOR Inhaled Oxygen Concentration - - Weight 87.1 kg (192 lb) 07/24/2021 11:48 AM LEAF SUCKER OPERATOR Height 182.9 cm (6') 07/24/2021 11:48 AM LEAF SUCKER OPERATOR Body Mass Index 26.04 07/24/2021 11:48 AM LEAF SUCKER OPERATOR Plan of Treatment Health Maintenance Due Date Last Done Comments Albumin Creatinine Ratio, Urine 1947 Depression Screening 1945 Hepatitis C Screening 1945 Dilated Eye Exam 1945 Foot Exam 1945 Lipid Panel 1947 Hepatitis B Screening 1965 Well Visit 65+ 2012 Hemoglobin A1C 12/04/2020 06/05/2020 eGFR 06/15/2021 06/15/2020, 06/05/2020 Fall Risk Assessment 08/06/2022 08/06/2021 Covid-19 Vaccine (3 - 2023-2 5 season) 2024 06/25/2021, 06/01/2021 Influenza Vaccine (Season Ended) 2025 06/26/2023, 05/25/2019, 06/25/2018, Additional history exists DTaP/Tdap/Td Vaccine (3 - Td or Tdap) 05/28/2027 05/28/2017, 02/26/2005 Pneumococcal vaccine 65+ Completed 02/18/2017, 12/2012 Abdominal Aortic Aneurysm (A AA) Screen Completed 04/12/2020 Zoster Vaccine Completed 09/25/2021, 03/2021, 05/31/2021, Additional history exists Medical Devices Implanted Type Area Mat Packer Device Identifier Shelf Expiration Date Model / Serial / Lot [employer]/C R Bard [id number] [facility] [address] Sepra Echo Ps 6x4in Monofilament Absorbable Low Latex Free - [id number] Implanted:Qty: 1 on 08/06/2021 by Josuha Appiah MD at [facility] [employer] [id number] / / [id number] Procedures Procedure Name Priority Date/Time Associated Diagnosis [...] AM CDT) eGFR 88 mL/min/1.7 3 m2 [facility] Comment: Interpretive Data Reference Interval Normal >/= 90 mL/min/1.73m2 Mildly decreased* 60 - 89 mL/min/1.73m2 Mildly to moderately decreased 45 - 59 mL/min/1.73m2 Moderately to severely decreased 30 - 44 mL/min/1.73m2 Severely decreased 15 - 29 mL/min/1.73m2 Kidney Failure < 15 mL/min/1.73m2 *Relative to young adult level If -[place] multiply value by 1.16. Estimated glomerular filtration [...] ORDERABLES Fin al Result Performing Organization Address [facility] Co de Phone Number [facility] [address] [place], [place] [id number] * (ABNORMAL) Hemoglobin A1c (06/05/2020 12:35 PM CDT) Hgb A1C 6.4(H) 4.0 - 5.6 % [facility] Estimated Average Glucose 137 mg/dL [facility] Comment: The ADA recommends reporting an estimated Average Glucose (eAG) with all Hemoglobin A1c results using the equation derived from a study of 507 normal and diabetic adults. Minority populations were underrepresented and children were not included. (Diabetes Care 31:6866-3101, 2008). The eAG is not equivalent to a fasting glucose. Blood specimen (specimen) 06/05/2020 12:35 PM CDT 06/05/2020 1:05 PM CDT us Yue Bowie NP LAB BLOOD ORDERABLES Final Result Performing Organization Address [facility]/ZIP Co de Phone Number [facility] [address] Department [employer] [place], [place] [id number] * CT Abdomen Pelvis W Contrast (04/12/2020 [...] foci. Electronically signed by: Avinash Zabala M.D. Narrative 04/12/2020 2:41 PM CDT Exam: CT ABDOMEN [...] Most Recently Relevant to Health Maintenance Insurance [facility] MEDICARE SUPPLEMENT INSURANCE [address] [place] [id number] MEDICARE [facility] MEDICARE SUPPLEMENT INSURANCE MEDICARE [facility] MEDICARE SUPPLEMENT INSURANCE Advance Directives For more information, please contact: [phone] Documents on File Type Date Recorded Patient Senior Cognos Developer Expl anation ADVANCE DIRECTIVE 08/07/2021 2:53 PM Yvon r of End Polisher-Medical ADVANCE DIRECTIVE 08/07/2021 2:49 PM Haleigh whatley Will ADVANCE DIRECTIVE 10/15/2020 9:14 AM ADVANCE DIRECTIVE 06/14/2020 5:53 AM * Full Code (Latest Code Status on File) Date Activated Date Inactivated Comments 06/14/2020 2:20 PM 06/15/2020 4:08 PM Care Teams Photo Tube Assembler Relationship Specialty Start Date End Date Chente Terrazas MD [address] [facility] [address] [place] [id number] PCP - General Internal Medicine 07/08/23 [place] [address] [place] [address] Consulting Physician General Surgery 06/15/20
[2025-01-14 11:32] LABS: Basophils Percent Auto 0.4 % (0.2-1.2); Eosinophils Absolute Auto 0.2 K/mm3 (0-0.3); Eosinophils Percent Auto 4.1 % (0-4.4); Hematocrit 40.7 % (42.0-52.0); Hemoglobin 13.8 g/dL (14.0-18.0); Immature Granulocyte Absolute 0.01 K/mm3 (0.00-0.031); Immature Granulocyte Percent A 0.2 % (0-0.5); Lymphocytes Absolute Auto 1.02 K/mm3 (0.9-3.2); Lymphocytes Percent Auto 22.2 % (18.3-44.2); Mean Corpuscular HGB Conc 33.9 g/dl (32-36); Mean Corpuscular Hemoglobin 31.4 pg (26-34); Mean Corpuscular Volume 92.7 fl (80-100); Mean Platelet Volume 12.4 fl (7.4-10.4); Monocytes Absolute Auto 0.6 K/mm3 (0.1-0.6); Monocytes Percent Auto 13.3 % (2.6-8.5); Neutrophils Absolute Auto 2.8 K/mm3 (1.3-6.7); Neutrophils Percent Auto 59.8 % (45.5-73.1); Platelet Count Result 123 k/mm3 (150-375); Red Blood Count 4.39 M/mm3 (4.6-6.20); Red Cell Distribution Width 13.2 % (11.5-14.5); White Blood Count 4.6 K/mm3 (4.5-10.0)
[2025-01-14 11:58] LABS: Alanine Aminotransferase 37 U/L (6-50); Albumin Level 4.4 g/dL (3.5-5.1); Alkaline Phosphatase 58 U/L (38-126); Anion Gap 9 mmol/L (4-12); Aspartate Amino Transferase 48 U/L (17-59); Bilirubin,Total 0.7 mg/dL (0.2-1.3); Blood Urea Nitrogen 23 mg/dL (9-20); Calcium 9.3 mg/dL (8.4-10.2); Carbon Dioxide 24 mmol/L (22-30); Chloride 109 mmol/L (98-107); Estimated Glomerular Filt Rate > 60; Glucose 105 mg/dL (65-110); Potassium 4.6 mmol/L (3.4-5.0); Sodium 142 mmol/L (137-145)
[2025-01-14 12:00] LABS: Iron 120 ug/dL (49-181)
[2025-01-14 12:10] LABS: Percent Iron Saturation 33 % (20-50)
[2025-01-14 12:31] LABS: Prostate Specific Antigen < 0.1 ng/mL (< OR = 4.0)
== END 2025-01-14 11:13 | disposition home or self-care (01) ==
PROVIDERS: PCP Internal Medicine; Visit Provider Internal Medicine Hematology & Oncology
DX: D64.9 Anemia, unspecified (principal); C61 Malignant neoplasm of prostate
CPT/HCPCS: 36415; 80053; 82607; 82728; 83540; 83550; 84153; 85025